=== PATIENT | female | born 1970 | race Hispanic/Latino ===

== ENCOUNTER 2020-07-23 12:54 | Emergency (ER) | payer SELFPAY ==
--- OUTSIDE RECORDS SUMMARY | 2020-07-23 12:58 | XMS REPORT | Continuity of Care Document ---
:1970 Author Organization [facility] t Address [address] [place] [address] Care Team Providers Name Role Phone Asked, Pcp Primary Care Physician Unavailable BROOKE AVILA Attending Clinician Unavailable CHANTALE Attending Clinician Unavailable JONELLE PERALTA Admitting Clinician Unavailable CHANTALE Admitting Clinician Unavailable Problems Condition Condition Condition Status Onset Resolution Last Treating Co mments Source Name Details Category Date Date Treatment Clinician Date Right Right Disease Active [facility] quadrant [facility] Medica l abdominal abdominal 00 [facility] pain pain Severe Severe Disease Active [facility] protein-ca protein-ca 1-05 Aleta maries - crissyavila woodward 00:00: Medical malnutriti malnutriti 00 Ce nter on on Recurrent Recurrent Disease Active 2016-[address] [facility] pancreatit pancreatit 2-24 Aleta kes - is is 00:00: [facility] Allergies, Adverse Reactions, Alerts This patient has no known allergies or adverse reactions. Social History Social Habit Start Date Stop Date Quantity Comments Source Tobacco use and 2017-07-12 2017-07-[address] [facility] - exposure 00:[facility]00 [facility]:00 [facility] Cigarettes smoked 2017-07-12 2017-07-[address] [facility] - current (pack per 00:00:00 00:00:00 [facility] day) - Reported Cigarette 2017-07-12 2017-07-[address] [facility] - pack-years 00:00:00 00:00:00 [facility] History of tobacco 2017-02-12 User of smokeless [facility] - use 00[facility]00:00 [facility] Alcohol intake 2016-08-22 2016-08-22 Current [place] 00:00:00 00:00:00 non-drinker of [facility] alcohol (finding) Sex Ass[birth year] [place] 00:00:00 00:00:00 [facility] Smoking Status Start Date Stop Date Source Former smoker 2017-07-12 00:00:00 2017-07-12 00:00:[address] [facility] Current every day 2016-08-22 [facility] Medications This patient has no known medications. Procedures This patient has no known procedures. Plan of Care Planned Activity Planned Date Details Comments Source Future Scheduled 2020-10-03 INFLUENZA VACCINE [facility] 00:00:00 [code = INFLUENZA VACCINE] Future Scheduled 2019-07-23 SHINGLES VACCINES [place] 00:00:00 (#1) [code = SHINGLES VACCINES (#1)] Future Scheduled 2019-07-23 BREAST CANCER [facility]00 SCREENING [code = BREAST CANCER SCREENING] Future Scheduled 2019-07-23 COLONOSCOPY SCREENING [facility] 00:00:00 [code = COLONOSCOPY SCREENING] Future Scheduled 1990 [facility]00 malignant neoplasm of cervix (procedure) [code = 163683208] Future Scheduled 1981 COVID-19 VACCINE (1) [facility] 00:00:00 [code = COVID-19 VACCINE (1)] Results Test Description Test Time Test Comments Results Result Comments Source BASIC METABOLIC PANEL 2017-07-12 09:36:00 Test Item Value Reference Range Interpretation Comme nts SODIUM (BEAKER) (test code 139 meq/L 136-145 = 381) POTASSIUM (BEAKER) (test 3.5 meq/L 3.5-5.1 code = 379) CHLORIDE (BEAKER) (test 104 meq/L 98-107 code = 382) CO2 (BEAKER) (test code = 23 meq/L 22-29 355) BLOOD UREA NITROGEN 9 mg/dL 7-21 (BEAKER) (test code = 354) CREATININE (BEAKER) (test 0.70 mg/dL 0.57-1.25 code = 358) GLUCOSE RANDOM (BEAKER) 77 mg/dL 70-105 (test code = 652) CALCIUM (BEAKER) (test code 9.7 mg/dL 8.4-10.2 = 697) EGFR (BEAKER) (test code = mL/min/1.73 sq m INSUFFICIENT CLINICAL DATA 1092) TO CALCULATE ES TIMATED GFR. CBC W/PLT COUNT & AUTO [id number] 09:08:00 Test Item Value Reference Range Interpretation Comments WHITE BLOOD CELL COUNT (BEAKER) 5.9 K/ L 3.5-10.5 (test code = 775) RED BLOOD CELL COUNT (BEAKER) 5.14 M/ L 3.93-5.22 (test code = 761) HEMOGLOBIN (BEAKER) (test code = 14.3 GM/DL 11.2-15.7 410) HEMATOCRIT (BEAKER) (test code = 44.3 % 34.1-44.9 411) MEAN CORPUSCULAR VOLUME (BEAKER) 86.2 fL 79.4-94.8 (test code = 753) MEAN CORPUSCULAR HEMOGLOBIN 27.8 pg 25.6-32.2 (BEAKER) (test code = 751) MEAN CORPUSCULAR HEMOGLOBIN CONC 32.3 GM/DL 32.2-35.5 (BEAKER) (test code = 752) RED CELL DISTRIBUTION WIDTH 14.1 % 11.7-14.4 (BEAKER) (test code = 412) PLATELET COUNT (BEAKER) (test 160 K/CU MM 150-450 code = 756) MEAN PLATELET VOLUME (BEAKER) 10.9 fL 9.4-12.3 (test code = 754) NUCLEATED RED BLOOD CELLS 0 /100 WBC 0-0 (BEAKER) (test code = 413) NEUTROPHILS RELATIVE PERCENT 47 % (BEAKER) (test code = 429) LYMPHOCYTES RELATIVE PERCENT 41 % (BEAKER) (test code = 430) MONOCYTES RELATIVE PERCENT 9 % (BEAKER) (test code = 431) EOSINOPHILS RELATIVE PERCENT 3 % (BEAKER) (test code = 432) BASOPHILS RELATIVE PERCENT 1 % (BEAKER) (test code = 437) NEUTROPHILS ABSOLUTE COUNT 2.73 K/ L 1.56-6.13 (BEAKER) (test code = 670) LYMPHOCYTES ABSOLUTE COUNT 2.37 K/ L 1.18-3.74 (BEAKER) (test code = 414) MONOCYTES ABSOLUTE COUNT (BEAKER) 0.51 K/ L 0.24-0.36 H (test code = 415) EOSINOPHILS ABSOLUTE COUNT 0.20 K/ L 0.04-0.36 (BEAKER) (test code = 416) BASOPHILS ABSOLUTE COUNT (BEAKER) 0.03 K/ L 0.01-0.08 (test code = 417) IMMATURE GRANULOCYTES-RELATIVE 0 % 0-1 PERCENT (BEAKER) (test code = 2801) FL, [id number] 21:43:00Reason for exam:->abd painFINAL REPORT Examination: ERCP 2 fluoroscopic spot views were obtained during the procedure by the ordering service. Images are nondiagnostic as no radiologist was present at the time of imaging. Fluoroscopic time was 81.9 seconds. Please see the procedure report for details. Signed: Hayden Butts MDReport Verified Date/Time: 07/11/2017 21:43:43 Reading Location: [address] Reading Room C METABOLIC [id number] 04:51:00 Test Item Value Reference Range Interpretation Comments SODIUM (BEAKER) 139 meq/L 136-145 (test code = 381) POTASSIUM (BEAKER) 4.0 meq/L 3.5-5.1 (test code = 379) CHLORIDE (BEAKER) 109 meq/L 98-107 H (test code = 382) CO2 (BEAKER) (test 20 meq/L 22-29 L code = 355) BLOOD UREA NITROGEN 8 mg/dL 7-21 (BEAKER) (test code = 354) CREATININE (BEAKER) 0.69 mg/dL 0.57-1.25 (test code = 358) GLUCOSE RANDOM 84 mg/dL 70-105 (BEAKER) (test code = 652) CALCIUM (BEAKER) 9.5 mg/dL 8.4-10.2 (test code = 697) EGFR (BEAKER) (test mL/min/1.73 INSUFFIC IENT CLINICAL code = 1092) sq m DATA TO CALCULA TE ESTIMATED GFR. CBC W/PLT COUNT & AUTO [id number] 04:46:00 Test Item Value Reference Range Interpretation Comments WHITE BLOOD CELL COUNT (BEAKER) 5.9 K/ L 3.5-10.5 (test code = 775) RED BLOOD CELL COUNT (BEAKER) 4.98 M/ L 3.93-5.22 (test code = 761) HEMOGLOBIN (BEAKER) (test code = 14.0 GM/DL 11.2-15.7 410) HEMATOCRIT (BEAKER) (test code = 42.7 % 34.1-44.9 411) MEAN CORPUSCULAR VOLUME (BEAKER) 85.7 fL 79.4-94.8 (test code = 753) MEAN CORPUSCULAR HEMOGLOBIN 28.1 pg 25.6-32.2 (BEAKER) (test code = 751) MEAN CORPUSCULAR HEMOGLOBIN CONC 32.8 GM/DL 32.2-35.5 (BEAKER) (test code = 752) RED CELL DISTRIBUTION WIDTH 14.3 % 11.7-14.4 (BEAKER) (test code = 412) PLATELET COUNT (BEAKER) (test 176 K/CU MM 150-450 code = 756) MEAN PLATELET VOLUME (BEAKER) 10.9 fL 9.4-12.3 (test code = 754) NUCLEATED RED BLOOD CELLS 0 /100 WBC 0-0 (BEAKER) (test code = 413) NEUTROPHILS RELATIVE PERCENT 39 % (BEAKER) (test code = 429) LYMPHOCYTES RELATIVE PERCENT 48 % (BEAKER) (test code = 430) MONOCYTES RELATIVE PERCENT 8 % (BEAKER) (test code = 431) EOSINOPHILS RELATIVE PERCENT 4 % (BEAKER) (test code = 432) BASOPHILS RELATIVE PERCENT 1 % (BEAKER) (test code = 437) NEUTROPHILS ABSOLUTE COUNT 2.30 K/ L 1.56-6.13 (BEAKER) (test code = 670) LYMPHOCYTES ABSOLUTE COUNT 2.82 K/ L 1.18-3.74 (BEAKER) (test code = 414) MONOCYTES ABSOLUTE COUNT (BEAKER) 0.46 K/ L 0.24-0.36 H (test code = 415) EOSINOPHILS ABSOLUTE COUNT 0.26 K/ L 0.04-0.36 (BEAKER) (test code = 416) BASOPHILS ABSOLUTE COUNT (BEAKER) 0.03 K/ L 0.01-0.08 (test code = 417) IMMATURE GRANULOCYTES-RELATIVE 0 % 0-1 PERCENT (BEAKER) (test code = 2801) BASIC METABOLIC [id number] 05:02:00 Test Item Value Reference Range Interpretation Comments SODIUM (BEAKER) 138 meq/L 136-145 (test code = 381) POTASSIUM (BEAKER) 3.6 meq/L 3.5-5.1 (test code = 379) CHLORIDE (BEAKER) 108 meq/L 98-107 H (test code = 382) CO2 (BEAKER) (test 20 meq/L 22-29 L code = 355) BLOOD UREA NITROGEN 10 mg/dL 7-21 (BEAKER) (test code = 354) CREATININE (BEAKER) 0.67 mg/dL 0.57-1.25 (test code = 358) GLUCOSE RANDOM 95 mg/dL 70-105 (BEAKER) (test code = 652) CALCIUM (BEAKER) 9.4 mg/dL 8.4-10.2 (test code = 697) EGFR (BEAKER) (test mL/min/1.73 INSUFFIC IENT CLINICAL code = 1092) sq m DATA TO CALCULA TE ESTIMATED GFR. CBC W/PLT COUNT & AUTO [id number] 04:27:00 Test Item Value Reference Range Interpretation Comments WHITE BLOOD CELL COUNT (BEAKER) 7.3 K/ L 3.5-10.5 (test code = 775) RED BLOOD CELL COUNT (BEAKER) 4.96 M/ L 3.93-5.22 (test code = 761) HEMOGLOBIN (BEAKER) (test code = 13.9 GM/DL 11.2-15.7 410) HEMATOCRIT (BEAKER) (test code = 42.8 % 34.1-44.9 411) MEAN CORPUSCULAR VOLUME (BEAKER) 86.3 fL 79.4-94.8 (test code = 753) MEAN CORPUSCULAR HEMOGLOBIN 28.0 pg 25.6-32.2 (BEAKER) (test code = 751) MEAN CORPUSCULAR HEMOGLOBIN CONC 32.5 GM/DL 32.2-35.5 (BEAKER) (test code = 752) RED CELL DISTRIBUTION WIDTH 14.4 % 11.7-14.4 (BEAKER) (test code = 412) PLATELET COUNT (BEAKER) (test 184 K/CU MM 150-450 code = 756) MEAN PLATELET VOLUME (BEAKER) 11.2 fL 9.4-12.3 (test code = 754) NUCLEATED RED BLOOD CELLS 0 /100 WBC 0-0 (BEAKER) (test code = 413) NEUTROPHILS RELATIVE PERCENT 48 % (BEAKER) (test code = 429) LYMPHOCYTES RELATIVE PERCENT 39 % (BEAKER) (test code = 430) MONOCYTES RELATIVE PERCENT 9 % (BEAKER) (test code = 431) EOSINOPHILS RELATIVE PERCENT 3 % (BEAKER) (test code = 432) BASOPHILS RELATIVE PERCENT 0 % (BEAKER) (test code = 437) NEUTROPHILS ABSOLUTE COUNT 3.50 K/ L 1.56-6.13 (BEAKER) (test code = 670) LYMPHOCYTES ABSOLUTE COUNT 2.84 K/ L 1.18-3.74 (BEAKER) (test code = 414) MONOCYTES ABSOLUTE COUNT (BEAKER) 0.64 K/ L 0.24-0.36 H (test code = 415) EOSINOPHILS ABSOLUTE COUNT 0.25 K/ L 0.04-0.36 (BEAKER) (test code = 416) BASOPHILS ABSOLUTE COUNT (BEAKER) 0.03 K/ L 0.01-0.08 (test code = 417) IMMATURE GRANULOCYTES-RELATIVE 0 % 0-1 PERCENT (BEAKER) (test code = 2801) CT, [id number] 19:19:00Reason for exam:->Abdominal painWhat is the patient's sedation requirement?->No SedationIs thepatient ?->UnknownFINAL REPORT CT scan of the abdomen and pelvis. CLINICAL HISTORY: Abdominal pain and distention with pancreatic stent. COMPARISON STUDY: March 01, 2017. TECHNIQUE: Contiguous helical slices were acquired through the abdomen and pelvis post administration of intravenous contrast. No oral contrast was administered. This exam was performed according to our department dose optimization program which includes automated exposure control, adjustment of the mA and/or kV according to the patient's size and/or use of iterative reconstruction technique. FINDINGS: The lung bases are clear. The liver, spleen, kidneys and adrenal glands are unremarkable. The gallbladder and biliary tree are within normal limits. A stent is in the pancreatic duct. Within the pancreatic head is a 4.0 x 2.1 cm cyst which previously measured 6.9 x 5.4 cm. There are no dilated loops of bowel seen to suggest obstruction. The appendix is not well seen but no obvious signs of appendicitis are noted. There is no free fluid or free air. No suspicious adenopathy is seen. The aorta is normal in caliber. Atherosclerosis is identified. Bone windows demonstrate degenerative changes. Fusion of the sacroiliac joints is seen and a seronegative spondyloarthropathy cannot be excluded. IMPRESSION:1. Stent within the p ancreatic duct with a cyst in the pancreatic head, smaller than on previous.2. Appendix not well seen.3. Fusion of the sacroiliac joints. Clinical correlation to exclude a seronegative spondyloarthropathy is recommended Signed: Sj Palacioseport Verified Date/Time: 07/09/2017 19:19:04 Reading Location: [address] Body Reading Room PREGNANCY SCREEN, [id number] 19:18:00 Test Item Value Reference Range Interpretation Comments TEST URINE (BEAKER) (test Negative code = 583) BASIC METABOLIC [id number] 14:45:00 Test Item Value Reference Range Interpretation Comments SODIUM (BEAKER) 138 meq/L 136-145 (test code = 381) POTASSIUM (BEAKER) 4.2 meq/L 3.5-5.1 (test code = 379) CHLORIDE (BEAKER) 108 meq/L 98-107 H (test code = 382) CO2 (BEAKER) (test 20 meq/L 22-29 L code = 355) BLOOD UREA NITROGEN 9 mg/dL 7-21 (BEAKER) (test code = 354) CREATININE (BEAKER) 0.73 mg/dL 0.57-1.25 (test code = 358) GLUCOSE RANDOM 88 mg/dL 70-105 (BEAKER) (test code = 652) CALCIUM (BEAKER) 9.8 mg/dL 8.4-10.2 (test code = 697) EGFR (BEAKER) (test mL/min/1.73 INSUFFIC IENT CLINICAL code = 1092) sq m DATA TO CALCULA TE ESTIMATED GFR. URINALYSIS W/ REFLEX URINE [id number] 14:33:00 Test Item Value Reference Range Interpretation Comments COLOR (BEAKER) (test code = 470) Colorless CLARITY (BEAKER) (test code = 469) Clear SPECIFIC GRAVITY UA (BEAKER) (test 1.003 1.001-1.035 code = 468) PH UA (BEAKER) (test code = 467) 6.0 5.0-8.0 PROTEIN UA (BEAKER) (test code = Negative Negative 464) GLUCOSE UA (BEAKER) (test code = Negative Negative 365) KETONES UA (BEAKER) (test code = Negative Negative 371) BILIRUBIN UA (BEAKER) (test code = Negative Negative 462) BLOOD UA (BEAKER) (test code = 461) Negative Negative NITRITE UA (BEAKER) (test code = Negative Negative 465) LEUKOCYTE ESTERASE UA (BEAKER) Negative Negative (test code = 466) UROBILINOGEN UA (BEAKER) (test code 0.2 mg/dL 0.2-1.0 = 463) RBC UA (BEAKER) (test code = 519) 0 /HPF WBC UA (BEAKER) (test code = 520) 0 /HPF SOURCE(BEAKER) (test code = 2795) [id number] 14:29:00 Test Item Value Reference Range Interpretation Comments LIPASE (BEAKER) (test code = 749) 43 U/L 8-78 HEPATIC FUNCTION [id number] 14:29:00 Test Item Value Reference Range Interpretation Comments TOTAL PROTEIN (BEAKER) (test code = 8.1 gm/dL 6.0-8.3 770) ALBUMIN (BEAKER) (test code = 1145) 4.5 g/dL 3.5-5.0 BILIRUBIN TOTAL (BEAKER) (test code 0.2 mg/dL 0.2-1.2 = 377) BILIRUBIN DIRECT (BEAKER) (test 0.1 mg/dL 0.1-0.5 code = 706) ALKALINE PHOSPHATASE (BEAKER) (test 94 U/L 40-150 code = 346) AST (SGOT) (BEAKER) (test code = 18 U/L 5-34 353) ALT (SGPT) (BEAKER) (test code = 14 U/L 6-55 347) [id number] 14:23:00 Test Item Value Reference Range Interpretation Comments PARTIAL THROMBOPLASTIN TIME 27.7 seconds 22.5-36.0 (BEAKER) (test code = 760) CBC W/PLT COUNT & AUTO [id number] 14:22:00 Test Item Value Reference Range Interpretation Comments WHITE BLOOD CELL COUNT (BEAKER) 8.7 K/ L 3.5-10.5 (test code = 775) RED BLOOD CELL COUNT (BEAKER) 5.34 M/ L 3.93-5.22 H (test code = 761) HEMOGLOBIN (BEAKER) (test code = 14.8 GM/DL 11.2-15.7 410) HEMATOCRIT (BEAKER) (test code = 46.3 % 34.1-44.9 H 411) MEAN CORPUSCULAR VOLUME (BEAKER) 86.7 fL 79.4-94.8 (test code = 753) MEAN CORPUSCULAR HEMOGLOBIN 27.7 pg 25.6-32.2 (BEAKER) (test code = 751) MEAN CORPUSCULAR HEMOGLOBIN CONC 32.0 GM/DL 32.2-35.5 L (BEAKER) (test code = 752) RED CELL DISTRIBUTION WIDTH 14.4 % 11.7-14.4 (BEAKER) (test code = 412) PLATELET COUNT (BEAKER) (test 193 K/CU MM 150-450 code = 756) MEAN PLATELET VOLUME (BEAKER) 11.1 fL 9.4-12.3 (test code = 754) NUCLEATED RED BLOOD CELLS 0 /100 WBC 0-0 (BEAKER) (test code = 413) NEUTROPHILS RELATIVE PERCENT 61 % (BEAKER) (test code = 429) LYMPHOCYTES RELATIVE PERCENT 27 % (BEAKER) (test code = 430) MONOCYTES RELATIVE PERCENT 9 % (BEAKER) (test code = 431) EOSINOPHILS RELATIVE PERCENT 3 % (BEAKER) (test code = 432) BASOPHILS RELATIVE PERCENT 1 % (BEAKER) (test code = 437) NEUTROPHILS ABSOLUTE COUNT 5.29 K/ L 1.56-6.13 (BEAKER) (test code = 670) LYMPHOCYTES ABSOLUTE COUNT 2.32 K/ L 1.18-3.74 (BEAKER) (test code = 414) MONOCYTES ABSOLUTE COUNT (BEAKER) 0.78 K/ L 0.24-0.36 H (test code = 415) EOSINOPHILS ABSOLUTE COUNT 0.29 K/ L 0.04-0.36 (BEAKER) (test code = 416) BASOPHILS ABSOLUTE COUNT (BEAKER) 0.04 K/ L 0.01-0.08 (test code = 417) IMMATURE GRANULOCYTES-RELATIVE 0 % 0-1 PERCENT (BEAKER) (test code = 2801) BLOOD [id number] 17:00:00 Test Item Value Reference Range Interpretation Comments CULTURE (BEAKER) (test No growth in 5 days code = 1095) COMPREHENSIVE METABOLIC [id number] 07:48:00 Test Item Value Reference Range Interpretation Comments TOTAL PROTEIN 6.8 gm/dL 6.0-8.3 (BEAKER) (test code = 770) ALBUMIN (BEAKER) 3.0 g/dL 3.5-5.0 L (test code = 1145) ALKALINE PHOSPHATASE 367 U/L 40-150 H (BEAKER) (test code = 346) BILIRUBIN TOTAL 0.9 mg/dL 0.2-1.2 (BEAKER) (test code = 377) SODIUM (BEAKER) 139 meq/L 136-145 (test code = 381) POTASSIUM (BEAKER) 3.8 meq/L 3.5-5.1 (test code = 379) CHLORIDE (BEAKER) 107 meq/L 98-107 (test code = 382) CO2 (BEAKER) (test 23 meq/L 22-29 code = 355) BLOOD UREA NITROGEN 2 mg/dL 7-21 L (BEAKER) (test code = 354) CREATININE (BEAKER) 0.56 mg/dL 0.57-1.25 L (test code = 358) GLUCOSE RANDOM 92 mg/dL 70-105 (BEAKER) (test code = 652) CALCIUM (BEAKER) 9.1 mg/dL 8.4-10.2 (test code = 697) AST (SGOT) (BEAKER) 60 U/L 5-34 H (test code = 353) ALT (SGPT) (BEAKER) 67 U/L 6-55 H (test code = 347) EGFR (BEAKER) (test mL/min/1.73 INSUFFIC IENT code = 1092) sq m CLINICAL DATA T O CALCULATE ESTIM ATED GFR. [id number] 07:44:00 Test Item Value Reference Range Interpretation Comments MAGNESIUM (BEAKER) (test code = 1.7 mg/dL 1.6-2.6 627) HEPATIC FUNCTION [id number] 07:44:00 Test Item Value Reference Range Interpretation Comments TOTAL PROTEIN (BEAKER) (test code = 6.8 gm/dL 6.0-8.3 770) ALBUMIN (BEAKER) (test code = 1145) 3.0 g/dL 3.5-5.0 L BILIRUBIN TOTAL (BEAKER) (test code 0.9 mg/dL 0.2-1.2 = 377) BILIRUBIN DIRECT (BEAKER) (test 0.6 mg/dL 0.1-0.5 H code = 706) ALKALINE PHOSPHATASE (BEAKER) (test 367 U/L 40-150 H code = 346) AST (SGOT) (BEAKER) (test code = 60 U/L 5-34 H 353) ALT (SGPT) (BEAKER) (test code = 67 U/L 6-55 H 347) POCT-GLUCOSE [id number] 05:37:00 Test Item Value Reference Range Interpretation Comments POC-GLUCOSE METER 101 mg/dL 70-110 TESTED AT [facility] 6720 (BEAKER) (test code = KELBY Lou [facility] 1538) [address] CT, ABDOMEN - PELVIS, PANCREAS [id number] 03:30:00Reason for exam:- >recurrent pancreatitisFINAL REPORT CLINICAL HISTORY: Recurrent pancreatitis, complicated FINDINGS:Multiple axial images of the abdomen and pelvis were performed before and after the uncomplicated adm inistration of IV contrast. Oral contrast was not given. This exam was performed according to our departmental dose-optimization program, which includes automated exposure control, adjustment of the mA and/or kV according to patient size and/or use of the iterative reconstruction technique. Comparison: Outside CT dated 02/22/2017 Lower chest: Curvilinear atelectasis versus scarring in the lung bases. No pleural effusion or pneumothorax. Visualized cardiac contours normal. Liver: No significant findings. Gallbladder and biliary tree: Plastic common bile duct stent in place. Trace pneumobilia including gas in the gallbladder lumen likely related to stent placement. No biliary ductal dilatation. Spleen: No significant findings. Adrenal Glands: No significant findings. Kidneys and ureters: No significant findings. Stomach and Duodenum: The distal stomach and proximal duodenum are displaced by a prominent pancreatic fluid collection. Pancreas: Multiple circumscribed fluid collections related to thepancreas, probably pseudocysts. The largest is in the pancreatic head measures 7.7 x 5.9 cm. A pancreatic duct stent in place. No Ductal dilatation is present. There is peripancreatic fat stranding. Several prominent but subcentimeter peripancreatic and nasreen hepatis lymph nodes are probably reactive.Bowel: No significant findings. Appendix: Nonvisualized. No right lower quadrant inflammatory changes. Bladder: No significant findings. Major vascular structures: Atherosclerotic calcifications. The splenic and superior mesenteric arteries and veins are patent. Reproductive organs: No significant findings. Skeleton: No acute bony abnormality. IMPRESSION: Multiple circumscribed fluid collections related to the pancreas, likely pseudocysts. Peripancreatic fat stranding and trace fluid likely relates to pancreatitis. Please correlate with serology. Interval placement of common bile duct and pancreatic ductal stents. No ductal dilatation is identified. Several prominent peripancreatic and nsareen hepatic nodes are probably reactive. Attention on follow-up. Signed: Hayden Butts MDRadan Verified Date/Time: 03/01/2017 03:30:46 Reading Location: [address] Reading Room Electronicallysigned by: HAYDEN BUTTS M.D. on 03/01/2017 03:30 AMPOCT-GLUCOSE [id number] 00:34:00 Test Item Value Reference Range Interpretation Comments POC-GLUCOSE METER 85 mg/dL 70-110 TESTED AT [place] [address] ([facility]) (test code = KELBY Lou [facility] [address] 1538) POCT-GLUCOSE [id number] 17:59:00 Test Item Value Reference Range Interpretation Comments POC-GLUCOSE METER 85 mg/dL 70-110 TESTED AT [place] [address] ([facility]) (test code = [facility] [address] 1538) POCT-GLUCOSE [id number] 11:39:00 Test Item Value Reference Range Interpretation Comments POC-GLUCOSE METER 84 mg/dL 70-110 TESTED AT [place] [address] ([facility]) (test code = [facility] Dasha [facility] [address] 1538) HEPATIC FUNCTION [id number] 07:46:00 Test Item Value Reference Range Interpretation Comments TOTAL PROTEIN ([facility]) (test code = 6.7 gm/dL 6.0-8.3 770) ALBUMIN (BEAKER) (test code = 1145) 2.9 g/dL 3.5-5.0 L BILIRUBIN TOTAL (BEAKER) (test code 1.1 mg/dL 0.2-1.2 = 377) BILIRUBIN DIRECT (BEAKER) (test 0.7 mg/dL 0.1-0.5 H code = 706) ALKALINE PHOSPHATASE (BEAKER) (test 444 U/L 40-150 H code = 346) AST (SGOT) (BEAKER) (test code = 71 U/L 5-34 H 353) ALT (SGPT) (BEAKER) (test code = 76 U/L 6-55 H 347) BASIC METABOLIC [id number] 07:29:00 Test Item Value Reference Range Interpretation Comments SODIUM (BEAKER) 140 meq/L 136-145 (test code = 381) POTASSIUM (BEAKER) 3.3 meq/L 3.5-5.1 L (test code = 379) CHLORIDE (BEAKER) 109 meq/L 98-107 H (test code = 382) CO2 (BEAKER) (test 24 meq/L 22-29 code = 355) BLOOD UREA NITROGEN 2 mg/dL 7-21 L (BEAKER) (test code = 354) CREATININE (BEAKER) 0.53 mg/dL 0.57-1.25 L (test code = 358) GLUCOSE RANDOM 104 mg/dL 70-105 (BEAKER) (test code = 652) CALCIUM (BEAKER) 8.9 mg/dL 8.4-10.2 (test code = 697) EGFR (BEAKER) (test mL/min/1.73 INSUFFIC IENT CLINICAL code = 1092) sq m DATA TO CALCULA TE ESTIMATED GFR. CBC W/PLT COUNT & AUTO [id number] 07:12:00 Test Item Value Reference Range Interpretation Comments WHITE BLOOD CELL COUNT (BEAKER) 6.0 K/ L 3.5-10.5 (test code = 775) RED BLOOD CELL COUNT (BEAKER) 3.68 M/ L 3.93-5.22 L (test code = 761) HEMOGLOBIN (BEAKER) (test code = 10.1 GM/DL 11.2-15.7 L 410) HEMATOCRIT (BEAKER) (test code = 32.0 % 34.1-44.9 L 411) MEAN CORPUSCULAR VOLUME (BEAKER) 87.0 fL 79.4-94.8 (test code = 753) MEAN CORPUSCULAR HEMOGLOBIN 27.4 pg 25.6-32.2 (BEAKER) (test code = 751) MEAN CORPUSCULAR HEMOGLOBIN CONC 31.6 GM/DL 32.2-35.5 L (BEAKER) (test code = 752) RED CELL DISTRIBUTION WIDTH 14.5 % 11.7-14.4 H (BEAKER) (test code = 412) PLATELET COUNT (BEAKER) (test 304 K/CU MM 150-450 code = 756) MEAN PLATELET VOLUME (BEAKER) 10.8 fL 9.4-12.3 (test code = 754) NUCLEATED RED BLOOD CELLS 0 /100 WBC 0-0 (BEAKER) (test code = 413) NEUTROPHILS RELATIVE PERCENT 46 % (BEAKER) (test code = 429) LYMPHOCYTES RELATIVE PERCENT 42 % (BEAKER) (test code = 430) MONOCYTES RELATIVE PERCENT 10 % (BEAKER) (test code = 431) EOSINOPHILS RELATIVE PERCENT 2 % (BEAKER) (test code = 432) BASOPHILS RELATIVE PERCENT 0 % (BEAKER) (test code = 437) NEUTROPHILS ABSOLUTE COUNT 2.78 K/ L 1.56-6.13 (BEAKER) (test code = 670) LYMPHOCYTES ABSOLUTE COUNT 2.50 K/ L 1.18-3.74 (BEAKER) (test code = 414) MONOCYTES ABSOLUTE COUNT (BEAKER) 0.61 K/ L 0.24-0.36 H (test code = 415) EOSINOPHILS ABSOLUTE COUNT 0.10 K/ L 0.04-0.36 (BEAKER) (test code = 416) BASOPHILS ABSOLUTE COUNT (BEAKER) 0.02 K/ L 0.01-0.08 (test code = 417) IMMATURE GRANULOCYTES-RELATIVE 0 % 0-1 PERCENT (BEAKER) (test code = 2801) [id number] 06:42:00 Test Item Value Reference Range Interpretation Comments PROTIME (BEAKER) (test code = 16.7 seconds 11.7-14.7 H 759) INR (BEAKER) (test code = 370) 1.4 <=5.9 PARTIAL THROMBOPLASTIN TIME 31.5 seconds 22.5-36.0 ([facility]) (test code = 760) RECOMMENDED COUMADIN/WARFARIN INR THERAPY RANGESSTANDARD DOSE: 2.0 - 3.0 Includes: PROPHYLAXIS forvenous thrombosis, systemic embolization; TREATMENT for venous thrombosis and/or pulmonary embolus.HIGH RISK: Target INR is 2.5-3.5 for patients with mechanical heart valves.POCT-GLUCOSE [id number] 05:42:00 Test Item Value Reference Range Interpretation Comments POC-GLUCOSE METER 109 mg/dL 70-110 TESTED AT [place] [address] ([facility]) (test code = [facility] 1538) [id number] POCT-GLUCOSE [id number] 23:11:00 Test Item Value Reference Range Interpretation Comments POC-GLUCOSE METER 124 mg/dL 70-110 H TESTED AT [place] [address] ([facility]) (test code = [facility] 1538) [id number] POCT-GLUCOSE [id number] 17:35:00 Test Item Value Reference Range Interpretation Comments POC-GLUCOSE METER 147 mg/dL 70-110 H TESTED AT [place] [address] ([facility]) (test code = [facility] 1538) [address] HEPATIC FUNCTION [id number] 13:30:00 Test Item Value Reference Range Interpretation Comments TOTAL PROTEIN (BEAKER) (test code = 7.1 gm/dL 6.0-8.3 770) [facility]IN [facility] (test code = 1145) 3.0 g/dL 3.5-5.0 L BILIRUBIN TOTAL (AKER) (test code 1.6 mg/dL 0.2-1.2 H = 377) BILIRUBIN DIRECT ([facility]) (test 1.0 mg/dL 0.1-0.5 H code = 706) ALKALINE PHOSPHATASE (AKER) (test 602 U/L 40-150 H code = 346) AST (SGOT) (BEAKER) (test code = 140 U/L 5-34 H 353) ALT (SGPT) ([facility]) (test code = 101 U/L 6-55 H 347) POCT-GLUCOSE [id number] 11:51:00 Test Item Value Reference Range Interpretation Comments POC-GLUCOSE METER 124 mg/dL 70-110 H TESTED AT [place] [address] ([facility]) (test code = [facility] 1538) [address] UT, RESIDENTIAL CONCIERGE IN OR/30 MINUTE [id number] 10:30:00Reason for exam:->ercpFINAL REPORT Intraoperative fluoroscopy films performed by the referring physician. Number of images: 10Fluoroscopic time: 106 seconds The films were submitted to PACS postprocedure. The radiologist was not present at the time of examination. An interpretation was not requested. The submitted images are nondiagnostic without real-time visualization. Please refer to the performing physician's dictation for any and all details regarding the procedure including the submitted images. The radiologist did not perform fluoroscopy. Signed: Lashell Kingston MDReport Verified Date/Time: 02/27/2017 10:30:02 Reading Location: [facility] Radiology Reading Room POCT-GLUCOSE [id number] 06:54:00 Test Item Value Reference Range Interpretation Comments POC-GLUCOSE METER 113 mg/dL 70-110 H TESTED AT [facility] 6720 (BEAKER) (test code = KELBY Lou [facility] 1538) [address] [id number] 06:46:00 Test Item Value Reference Range Interpretation Comments MAGNESIUM (BEAKER) (test code = 1.9 mg/dL 1.6-2.6 627) BASIC METABOLIC [id number] 06:46:00 Test Item Value Reference Range Interpretation Comments SODIUM (BEAKER) 140 meq/L 136-145 (test code = 381) POTASSIUM (BEAKER) 3.5 meq/L 3.5-5.1 (test code = 379) CHLORIDE (BEAKER) 108 meq/L 98-107 H (test code = 382) CO2 (BEAKER) (test 22 meq/L 22-29 code = 355) BLOOD UREA NITROGEN 3 mg/dL 7-21 L (BEAKER) (test code = 354) CREATININE (BEAKER) 0.54 mg/dL 0.57-1.25 L (test code = 358) GLUCOSE RANDOM 105 mg/dL 70-105 (BEAKER) (test code = 652) CALCIUM (BEAKER) 9.2 mg/dL 8.4-10.2 (test code = 697) EGFR (BEAKER) (test mL/min/1.73 INSUFFIC IENT CLINICAL code = 1092) sq m DATA TO CALCULA TE ESTIMATED GFR. [id number] 06:36:00 Test Item Value Reference Range Interpretation Comments PROTIME (BEAKER) (test code = 16.1 seconds 11.7-14.7 H 759) INR (BEAKER) (test code = 370) 1.3 <=5.9 PARTIAL THROMBOPLASTIN TIME 33.1 seconds 22.5-36.0 (BEAKER) (test code = 760) RECOMMENDED COUMADIN/WARFARIN INR THERAPY RANGESSTANDARD DOSE: 2.0 - 3.0 Includes: PROPHYLAXIS forvenous thrombosis, systemic embolization; TREATMENT for venous thrombosis and/or pulmonary embolus.HIGH RISK: Target INR is 2.5-3.5 for patients with mechanical heart valves.CBC W/PLT COUNT & AUTO DIFFERENTIAL 2017-02-27 06:29:00 Test Item Value Reference Range Interpretation Comments WHITE BLOOD CELL COUNT (BEAKER) 4.6 K/ L 3.5-10.5 (test code = 775) RED BLOOD CELL COUNT (BEAKER) 3.83 M/ L 3.93-5.22 L (test code = 761) HEMOGLOBIN (BEAKER) (test code = 10.6 GM/DL 11.2-15.7 L 410) HEMATOCRIT (BEAKER) (test code = 33.3 % 34.1-44.9 L 411) MEAN CORPUSCULAR VOLUME (BEAKER) 86.9 fL 79.4-94.8 (test code = 753) MEAN CORPUSCULAR HEMOGLOBIN 27.7 pg 25.6-32.2 (BEAKER) (test code = 751) MEAN CORPUSCULAR HEMOGLOBIN CONC 31.8 GM/DL 32.2-35.5 L (BEAKER) (test code = 752) RED CELL DISTRIBUTION WIDTH 14.2 % 11.7-14.4 (BEAKER) (test code = 412) PLATELET COUNT (BEAKER) (test 336 K/CU MM 150-450 code = 756) MEAN PLATELET VOLUME (BEAKER) 11.1 fL 9.4-12.3 (test code = 754) NUCLEATED RED BLOOD CELLS 0 /100 WBC 0-0 (BEAKER) (test code = 413) NEUTROPHILS RELATIVE PERCENT 45 % (BEAKER) (test code = 429) LYMPHOCYTES RELATIVE PERCENT 34 % (BEAKER) (test code = 430) MONOCYTES RELATIVE PERCENT 12 % (BEAKER) (test code = 431) EOSINOPHILS RELATIVE PERCENT 7 % (BEAKER) (test code = 432) BASOPHILS RELATIVE PERCENT 1 % (BEAKER) (test code = 437) NEUTROPHILS ABSOLUTE COUNT 2.09 K/ L 1.56-6.13 (BEAKER) (test code = 670) LYMPHOCYTES ABSOLUTE COUNT 1.57 K/ L 1.18-3.74 (BEAKER) (test code = 414) MONOCYTES ABSOLUTE COUNT (BEAKER) 0.57 K/ L 0.24-0.36 H (test code = 415) EOSINOPHILS ABSOLUTE COUNT 0.34 K/ L 0.04-0.36 (BEAKER) (test code = 416) BASOPHILS ABSOLUTE COUNT (BEAKER) 0.03 K/ L 0.01-0.08 (test code = 417) IMMATURE GRANULOCYTES-RELATIVE 1 % 0-1 PERCENT (BEAKER) (test code = 2801) POCT-GLUCOSE [id number] 01:03:00 Test Item Value Reference Range Interpretation Comments POC-GLUCOSE METER 114 mg/dL 70-110 H TESTED AT [place] [address] [facility] (test code = [facility] 1538) [id number] POCT-GLUCOSE [id number] 21:52:00 Test Item Value Reference Range Interpretation Comments POC-GLUCOSE METER 83 mg/dL 70-110 TESTED AT [place] [address] [facility] (test code = [facility] [address] 1538) POCT-GLUCOSE [id number] 18:04:00 Test Item Value Reference Range Interpretation Comments POC-GLUCOSE METER 123 mg/dL 70-110 H TESTED AT [place] [id number] (BEAKER) (test code = [facility] 1538) [address] POCT-GLUCOSE [id number] 11:34:00 Test Item Value Reference Range Interpretation Comments POC-GLUCOSE METER 108 mg/dL 70-110 TESTED AT [place] [id number] (BEAKER) (test code = [facility] 1538) [address] [id number] 09:45:00 Test Item Value Reference Range Interpretation Comments MAGNESIUM (BEAKER) (test code = 1.7 mg/dL 1.6-2.6 627) [id number] 08:55:00 Test Item Value Reference Range Interpretation Comments LIPASE (BEAKER) (test code = 749) 605 U/L 8-78 H Specimen slightly ictericU/S, ABDOMINAL, [id number] 06:47:00Reason for exam:->abdominal painFINAL REPORT U/S, ABDOMINAL, COMPLETE INDICATION: "abdominal pain" COMPARISON: None. TECHNIQUE: Real-time transabdominal roberts scale and color Doppler ultrasound of the abdomen. FINDINGS:8.7 x 6.9 x 0.7 cm fluid collection near the head of the pancreas. There is some debris within this fluid collection in the wall is somewhat thick. Additionally, there is a smaller 2.5 x 1.3 x2.3 cm hypoechoic structure in the parenchyma of the pancreatic head. This is probably also a fluid collection despite the ability to fully clear the internal echoes.Moderate intrahepatic bile duct dilation.CBD is enlarged at 8 mm.Biliary sludge. Borderline gallbladder wall thickening. Mild pericholecystic fluid.Sonographic Spencer's sign is positive.Visualized portions of the kidneys are unremarkablewithout obvious hydronephrosis.Spleen is not enlarged.The visualized portions of the IVC and aorta are unremarkable. IMPRESSION: Large, thick-walled cystic structure with some internal debris centered around the pancreatic head. The ultrasound appearance is nonspecific, however statistically, this probably reflects a pseudocyst.Intra and extrahepatic bile duct dilation concerning for choledocholithiasis versus compression of the distal CBD by the presumed pseudocyst.Evaluation for acute cholecystitis is complicated by the presence of a pseudocyst and therefore, many of the ultrasound finding such as wall thickening, pericholecystic fluid, and the Spencer's sign are unreliable.CT recommended for further evaluation. Signed: Chucho Dempsey MDReport Verified Date/Time: 02/26/2017 06:47:30 Reading Location: [address] Consult Reading Room BASIC METABOLIC [id number] 06:18:00 Test Item Value Reference Range Interpretation Comments SODIUM (BEAKER) 138 meq/L 136-145 (test code = 381) POTASSIUM (BEAKER) 3.2 meq/L 3.5-5.1 L (test code = 379) CHLORIDE (BEAKER) 105 meq/L 98-107 (test code = 382) CO2 (BEAKER) (test 23 meq/L 22-29 code = 355) BLOOD UREA NITROGEN 2 mg/dL 7-21 L (BEAKER) (test code = 354) CREATININE (BEAKER) 0.51 mg/dL 0.57-1.25 L (test code = 358) GLUCOSE RANDOM 95 mg/dL 70-105 (BEAKER) (test code = 652) CALCIUM (BEAKER) 8.8 mg/dL 8.4-10.2 (test code = 697) EGFR (BEAKER) (test mL/min/1.73 INSUFFIC IENT CLINICAL code = 1092) sq m DATA TO CALCULA TE ESTIMATED GFR. Specimen slightly ictericRAD, CHEST, 1 VIEW, NON [id number] 06:00:00Reason for exam:->PICC placement Should this be performed at the bedside?->Yes FINAL REPORT RAD, CHEST, 1 VIEW, NON DEPT INDICATION: PICC placement COMPARISON: None TECHNIQUE: Portable frontal view of the chest. IMPRESSION: Left-sided PICC line terminates at the atriocaval junction.Cardiomediastinal silhouette stable.Linear opacity in the periphery of thelower right hemithorax which could reflect atelectasis or scarring. The lungs are otherwise clear.Noacute osseous abnormality. Signed: Chucho Dempsey MDReport Verified Date/Time: 02/26/2017 06:00:21 Reading Location: [address] Ortho Consult Reading Room URINALYSIS W/ [id number] 05:24:00 Test Item Value Reference Range Interpretation Comments COLOR (BEAKER) (test code = Dark Yellow 470) CLARITY (BEAKER) (test code = Clear 469) SPECIFIC GRAVITY UA (BEAKER) 1.010 1.001-1.035 (test code = 468) PH UA (BEAKER) (test code = 6.5 5.0-8.0 467) PROTEIN UA (BEAKER) (test code Negative Negative = 464) GLUCOSE UA (BEAKER) (test code Negative Negative = 365) KETONES UA (BEAKER) (test code 10 mg/dL Negative A = 371) BILIRUBIN UA (BEAKER) (test Positive Negative A code = 462) BLOOD UA (BEAKER) (test code = Negative Negative 461) NITRITE UA (BEAKER) (test code Negative Negative = 465) LEUKOCYTE ESTERASE UA (BEAKER) Negative Negative (test code = 466) UROBILINOGEN UA (BEAKER) (test 2.0 mg/dL 0.2-1.0 H code = 463) RBC UA (BEAKER) (test code = < /HPF 519) WBC UA (BEAKER) (test code = 2 /HPF 520) MUCUS (BEAKER) (test code = Occasional 1574) SQUAMOUS EPITHELIAL (BEAKER) 1 /HPF (test code = 516) AMORPHOUS CRYSTALS (BEAKER) Occasional (test code = 1584) SOURCE(BEAKER) (test code = Urine, Voided 2719) SCREEN, [id number] 05:24:00 Test Item Value Reference Range Interpretation Comments TEST URINE (BEAKER) (test Negative code = 583) [id number] 05:17:00 Test Item Value Reference Range Interpretation Comments PROTIME (BEAKER) (test code = 15.0 seconds 11.7-14.7 H 759) INR (BEAKER) (test code = 370) 1.2 <=5.9 PARTIAL THROMBOPLASTIN TIME 32.6 seconds 22.5-36.0 (BEAKER) (test code = 760) RECOMMENDED COUMADIN/WARFARIN INR THERAPY RANGESSTANDARD DOSE: 2.0 - 3.0 Includes: PROPHYLAXIS forvenous thrombosis, systemic embolization; TREATMENT for venous thrombosis and/or pulmonary embolus.HIGH RISK: Target INR is 2.5-3.5 for patients with mechanical heart valves.CBC W/PLT COUNT & AUTO DIFFERENTIAL 2017-02-26 05:14:00 Test Item Value Reference Range Interpretation Comments WHITE BLOOD CELL COUNT (BEAKER) 5.7 K/ L 3.5-10.5 (test code = 775) RED BLOOD CELL COUNT (BEAKER) 3.65 M/ L 3.93-5.22 L (test code = 761) HEMOGLOBIN (BEAKER) (test code = 10.1 GM/DL 11.2-15.7 L 410) HEMATOCRIT (BEAKER) (test code = 31.5 % 34.1-44.9 L 411) MEAN CORPUSCULAR VOLUME (BEAKER) 86.3 fL 79.4-94.8 (test code = 753) MEAN CORPUSCULAR HEMOGLOBIN 27.7 pg 25.6-32.2 (BEAKER) (test code = 751) MEAN CORPUSCULAR HEMOGLOBIN CONC 32.1 GM/DL 32.2-35.5 L (BEAKER) (test code = 752) RED CELL DISTRIBUTION WIDTH 13.8 % 11.7-14.4 (BEAKER) (test code = 412) PLATELET COUNT (BEAKER) (test 323 K/CU MM 150-450 code = 756) MEAN PLATELET VOLUME (BEAKER) 10.9 fL 9.4-12.3 (test code = 754) NUCLEATED RED BLOOD CELLS 0 /100 WBC 0-0 (BEAKER) (test code = 413) NEUTROPHILS RELATIVE PERCENT 59 % (BEAKER) (test code = 429) LYMPHOCYTES RELATIVE PERCENT 23 % (BEAKER) (test code = 430) MONOCYTES RELATIVE PERCENT 11 % (BEAKER) (test code = 431) EOSINOPHILS RELATIVE PERCENT 6 % (BEAKER) (test code = 432) BASOPHILS RELATIVE PERCENT 1 % (BEAKER) (test code = 437) NEUTROPHILS ABSOLUTE COUNT 3.36 K/ L 1.56-6.13 (BEAKER) (test code = 670) LYMPHOCYTES ABSOLUTE COUNT 1.32 K/ L 1.18-3.74 (BEAKER) (test code = 414) MONOCYTES ABSOLUTE COUNT (BEAKER) 0.61 K/ L 0.24-0.36 H (test code = 415) EOSINOPHILS ABSOLUTE COUNT 0.31 K/ L 0.04-0.36 (BEAKER) (test code = 416) BASOPHILS ABSOLUTE COUNT (BEAKER) 0.03 K/ L 0.01-0.08 (test code = 417) IMMATURE GRANULOCYTES-RELATIVE 1 % 0-1 PERCENT (BEAKER) (test code = 2801) BASIC METABOLIC [id number] 01:21:00 Test Item Value Reference Range Interpretation Comments SODIUM (BEAKER) 137 meq/L 136-145 (test code = 381) POTASSIUM (BEAKER) 3.2 meq/L 3.5-5.1 L (test code = 379) CHLORIDE (BEAKER) 104 meq/L 98-107 (test code = 382) CO2 (BEAKER) (test 23 meq/L 22-29 code = 355) BLOOD UREA NITROGEN 3 mg/dL 7-21 L (BEAKER) (test code = 354) CREATININE (BEAKER) 0.50 mg/dL 0.57-1.25 L (test code = 358) GLUCOSE RANDOM 95 mg/dL 70-105 (BEAKER) (test code = 652) CALCIUM (BEAKER) 9.0 mg/dL 8.4-10.2 (test code = 697) EGFR (BEAKER) (test mL/min/1.73 INSUFFIC IENT CLINICAL code = 1092) sq m DATA TO CALCULA TE ESTIMATED GFR. Specimen slightly ictericHEPATIC FUNCTION [id number] 01:11:00 Test Item Value Reference Range Interpretation Comments TOTAL PROTEIN (BEAKER) (test code = 7.2 gm/dL 6.0-8.3 770) ALBUMIN (BEAKER) (test code = 1145) 3.0 g/dL 3.5-5.0 L BILIRUBIN TOTAL (BEAKER) (test code 3.5 mg/dL 0.2-1.2 H = 377) BILIRUBIN DIRECT (BEAKER) (test 2.6 mg/dL 0.1-0.5 H code = 706) ALKALINE PHOSPHATASE (BEAKER) (test 520 U/L 40-150 H code = 346) AST (SGOT) (BEAKER) (test code = 161 U/L 5-34 H 353) ALT (SGPT) (BEAKER) (test code = 82 U/L 6-55 H 347) Specimen slightly ictericCBC W/PLT COUNT & AUTO [id number] 00:24:00 Test Item Value Reference Range Interpretation Comments WHITE BLOOD CELL COUNT (BEAKER) 6.2 K/ L 3.5-10.5 (test code = 775) RED BLOOD CELL COUNT (BEAKER) 3.69 M/ L 3.93-5.22 L (test code = 761) HEMOGLOBIN (BEAKER) (test code = 10.1 GM/DL 11.2-15.7 L 410) HEMATOCRIT (BEAKER) (test code = 31.8 % 34.1-44.9 L 411) MEAN CORPUSCULAR VOLUME (BEAKER) 86.2 fL 79.4-94.8 (test code = 753) MEAN CORPUSCULAR HEMOGLOBIN 27.4 pg 25.6-32.2 (BEAKER) (test code = 751) MEAN CORPUSCULAR HEMOGLOBIN CONC 31.8 GM/DL 32.2-35.5 L (BEAKER) (test code = 752) RED CELL DISTRIBUTION WIDTH 13.8 % 11.7-14.4 (BEAKER) (test code = 412) PLATELET COUNT (BEAKER) (test 345 K/CU MM 150-450 code = 756) MEAN PLATELET VOLUME (BEAKER) 10.5 fL 9.4-12.3 (test code = 754) NUCLEATED RED BLOOD CELLS 0 /100 WBC 0-0 (BEAKER) (test code = 413) NEUTROPHILS RELATIVE PERCENT 57 % (BEAKER) (test code = 429) LYMPHOCYTES RELATIVE PERCENT 27 % (BEAKER) (test code = 430) MONOCYTES RELATIVE PERCENT 10 % (BEAKER) (test code = 431) EOSINOPHILS RELATIVE PERCENT 5 % (BEAKER) (test code = 432) BASOPHILS RELATIVE PERCENT 0 % (BEAKER) (test code = 437) NEUTROPHILS ABSOLUTE COUNT 3.53 K/ L 1.56-6.13 (BEAKER) (test code = 670) LYMPHOCYTES ABSOLUTE COUNT 1.70 K/ L 1.18-3.74 (BEAKER) (test code = 414) MONOCYTES ABSOLUTE COUNT (BEAKER) 0.61 K/ L 0.24-0.36 H (test code = 415) EOSINOPHILS ABSOLUTE COUNT 0.31 K/ L 0.04-0.36 (BEAKER) (test code = 416) BASOPHILS ABSOLUTE COUNT (BEAKER) 0.02 K/ L 0.01-0.08 (test code = 417) IMMATURE GRANULOCYTES-RELATIVE 1 % 0-1 PERCENT (BEAKER) (test code = 2771)
[2020-07-23 15:01] LABS: Urine Blood 2+ (Negative); Urine Glucose Negative (Negative); Urine Protein Negative (Negative)
--- NOTE | 2020-07-23 15:35 | RAD REPORT ---
EXAM DESCRIPTION: CT - Stone Protocol - 07/23/2020 3:10 pm CLINICAL HISTORY: FLANK PAIN COMPARISON: Abdomen Pelvis W Contrast dated 02/22/2017; Abdomen Pelvis W Contrast dated TECHNIQUE: Axial 5 mm thick images were obtained without oral or IV contrast. The [id number] span s the entirety of the system including uppermost abdomen and lung bases. All CT scans are performed using dose optimization technique as appropriate and may include automated exposure control or mA/KV adjustment according to patient size. FINDINGS: Minimal dilatation of the left collecting system is present in the left kidney appears sli ghtly edematous relative to the right. There is a mild edema appearance to the livingston of the left david ecting system. No obstructing or nonobstructing calculi seen. Calcification near the pelvic inlet and near the UVJ are both believed to be vascular and not within the ureter. No bladder calculi seen. No right-sided hydronephrosis or right-sided calculus present. No suspicious renal masses. Isodense mas ses and pyelonephritis are not excluded on a stone protocol CT scan. No significant adrenal finding. No gross abnormality of the contracted urinary bladder. Uterus and ovaries show no suspicious finding s. No liver, spleen, gallbladder or biliary tree abnormality seen. No acute pancreatic finding. The nume elvi large pancreatic pseudocyst seen in 2017 have resolved. No suspicious bowel findings. Appendicitis is not suspected. No hernia, mass or bulky lymphadenopathy noted. No free air, free fluid or inflammatory stranding. No significant bony abnormality. Prominent disc and bony degenerative changes are present. No acute or pathologic bone process identifiable. Findings are most pronounced at L5-S1. IMPRESSION: Mild left-sided hydronephrosis without obstructing calculi seen. Livingston of the ureter jessenia ear edematous and the left kidney may be slightly edematous relative to the right. Pyelonephritis and/ or ureteritis cannot be excluded on a noncontrast study. Blood or inflammatory de bris in the collecting system can cause this degree of dilatation.
--- NOTE | 2020-07-23 16:01 | ER ---
Nurse's Notes [facility] Name: Shell Howard Age: 50 yrs Sex: Female : 1970 Arrival Date: 07/23/2020 Time: 12:58 Bed 7 Private MD: Diagnosis: Urinary tract infection, site not specified Presentation: 07/23 13:33 Chief complaint: Patient states: pressure in vaginal area that started on Sunday, on em Sunday developed left flank pain with nausea/vomiting, blood tinged urine, fatigue and burning with urination, denies fever. Coronavirus screen: Client denies travel out of the [place] in the last 14 days. Ebola Screen: Patient negative for fever greater than or equal to 101.5 degrees Fahrenheit, and additional compatible Ebola Virus Disease symptoms Patient denies exposure to infectious person. Patient denies travel to an Ebola-affected area in the 21 days before illness onset. No symptoms or risks identified at this time. Initial Sepsis Screen: Does the patient meet any 2 criteria? HR > 90 bpm. No. Patient's initial sepsis screen is negative. Does the patient have a suspected source of infection? No. Patient's initial sepsis screen is negative. Risk Assessment: Do you want to hurt yourself or someone else? Patient reports no desire to harm self or others. Onset of symptoms was July 23, 2020. 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 - Social history:: Smoking status: Patient reports the use of cigarette tobacco products, smokes one pack cigarettes per day. Screenin:06 Abuse screen: Denies threats or abuse. Denies injuries from another. Nutritional ld1 screening: No deficits noted. Tuberculosis screening: No symptoms or risk factors identified. Fall Risk None identified. Assessment: 15:06 General: Appears in no apparent distress. comfortable, Behavior is calm, cooperative, ld1 appropriate for age. Pain: Complains of pain in left low back and left lower quadrant Pain radiates to groin. Neuro: Neuro: Level of Consciousness is awake, alert, obeys commands, Oriented to person, place, time, situation, Appropriate for age. Cardiovascular: Capillary refill < 3 seconds Patient's skin is warm and dry. Respiratory: Airway is patent Respiratory effort is even, unlabored, Respiratory pattern is regular, symmetrical. GI: Abdomen is flat, non-distended. : Reports Pt reports hematuria X 3 days, also states "there is a lot of pressure in my bladder.". EENT: No signs and/or symptoms were reported regarding the EENT system. Derm: No signs and/or symptoms reported regarding the dermatologic system. Musculoskeletal: No signs and/or symptoms reported regarding the musculoskeletal system. 15:40 Reassessment: Patient appears in no apparent distress at this time. No changes from ld1 previously documented assessment. Patient and/or family updated on plan of care and expected duration. Pain level reassessed. Patient is alert, oriented x 3, equal unlabored respirations, skin warm/dry/pink. Laying in bed talking on phone. Waiting on results. Vital Signs: 13:33 BP 141 / 88; Pulse 92; Resp 18; Temp 99.1; Pulse Ox 98% on R/A; Weight 71.21 kg; Height em 5 ft. 5 in. (165.10 cm) (R); Pain 7/10; 15:40 BP 128 / 90; Pulse 86; Resp 18; Pulse Ox 100% on R/A; ld1 13:33 Body Mass Index 26.13 (71.21 kg, 165.10 cm) em ED Course: 12:58 Patient arrived in ED. mr 13:37 Triage completed. em 13:37 Arm band placed on. em 13:42 Malissa Toledo F[facility]-C [facility] kb 13:42 Dangelo Galarza MD is Attending Physician. kb 15:03 Ana Paula Galeana, RENZO is Primary Nurse. ld1 15:06 Patient has correct armband on for positive identification. Bed in low position. Call ld1 light in reach. Side rails up X 1. Pulse ox on. NIBP on. 15:06 No provider procedures requiring assistance completed. ld1 15:09 CT Stone Protocol In Process Unspecified. EDMS 16:12 Patient did not have IV access during this emergency room visit. ld1 18:11 Urine Microscopic Only Sent. ld1 Administered Medications: 15:30 Drug: Rocephin (cefTRIAXone) 1 grams Route: IM; Site: right gluteus; ld1 16:11 Follow up: Response: No adverse reaction ld1 15:30 Drug: TORadol (ketorolac) 30 mg Route: IM; Site: right deltoid; ld1 16:11 Follow up: Response: No adverse reaction ld1 15:30 Drug: Zofran (Ondansetron) 4 mg Route: PO; ld1 16:11 Follow up: Response: No adverse reaction ld1 Outcome: 16:00 Discharge ordered by . scott 16:12 Discharged to home ambulatory. ld1 16:12 Condition: stable 16:12 Discharge instructions given to patient, Instructed on discharge instructions, follow up and referral plans. medication usage, Demonstrated understanding of instructions, follow-up care, medications. 16:12 Patient left the ED. ld1 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 [employer] EDMalissa Velasquez, GIN BARGER-Christy Miller Edgar, RN RN Ana Paula Mora, RENZO RN ld1
--- NOTE | 2020-07-23 16:01 | EDPHYS ---
Physician Documentation [facility] Name: Shell Howard Age: 50 yrs Sex: Female : 1970 Arrival Date: 07/23/2020 Time: 12:58 Bed 7 Private MD: ED Physician Dangelo Galarza HPI: 07/24 00:11 This 50 yrs old Female presents to ER via Ambulatory with complaints of Flank kb Pain, Urinary Problem. 00:11 Pt reports she has had dysuria, frequency, hematuria (resolved after using cranberry), kb and low back pain. . 00:12 The patient presents with urinary symptoms, dysuria, frequency, hematuria. Onset: The kb symptoms/episode began/occurred 5 day(s) ago. Modifying factors: The symptoms are alleviated by nothing, the symptoms are aggravated by urinating. Associated signs and symptoms: Pertinent positives: dysuria, hematuria, urinary frequency. Severity of symptoms: At their worst the symptoms were moderate, in the emergency department the symptoms are unchanged. The patient has not experienced similar symptoms in the past. The patient has not recently seen a physician. 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 - Social history:: Smoking status: Patient reports the use of cigarette tobacco products, smokes one pack cigarettes per day. ROS: 07/24 00:10 Respiratory: Negative for shortness of breath, cough, wheezing, and pleuritic chest kb pain. Constitutional: Positive for fatigue. : Positive for urinary symptoms, flank pain, urinary frequency, small amounts, hematuria, burning with urination. All other systems are negative. Exam: 00:10 Constitutional: This is a well developed, well nourished patient who is awake, alert, kb and in no acute distress. ENT: Moist Mucous membranes Cardiovascular: Regular rate and rhythm with a normal S1 and S2. No gallops, murmurs, or rubs. No pulse deficits. Respiratory: Respirations even and unlabored. No increased work of breathing, no retractions or nasal flaring. Abdomen/GI: Soft, non-tender. No distention Back: No spinal tenderness. No costovertebral tenderness. Full range of motion. Skin: Warm, dry with normal turgor. Normal color. MS/ Extremity: Pulses equal, no cyanosis. Neurovascular intact. Full, normal range of motion. Neuro: Awake and alert, GCS 15, oriented to person, place, time, and situation. Moves all extremities. Normal gait. Psych: Awake, alert, with orientation to person, place and time. Behavior, mood, and affect are within normal limits. Vital Signs: 07/23 13:33 BP 141 / 88; Pulse 92; Resp 18; Temp 99.1; Pulse Ox 98% on R/A; Weight 71.21 kg; Height em 5 ft. 5 in. (165.10 cm) (R); Pain 7/10; 15:40 BP 128 / 90; Pulse 86; Resp 18; Pulse Ox 100% on R/A; ld1 13:33 Body Mass Index 26.13 (71.21 kg, 165.10 cm) em MDM: 14:47 Patient medically screened. kb 15:59 Data reviewed: vital signs, nurses notes. Data interpreted: Pulse oximetry: on room air kb is 98 %. Interpretation: normal. Counseling: I had a detailed discussion with the patient and/or guardian regarding: the historical points, exam findings, and any diagnostic results supporting the discharge/admit diagnosis, lab results, radiology results, the need for outpatient follow up, a family practitioner, to return to the emergency department if symptoms worsen or persist or if there are any questions or concerns that arise at home. 07/23 13:42 Order name: Urine Microscopic Only kb 07/23 13:42 Order name: Urine Microscopic Only; Complete Time: 19:11 EDMS 07/23 14:56 Order name: CT Stone Protocol; Complete Time: 15:37 kb 07/23 15:01 Order name: Urine Dipstick-Ancillary; Complete Time: 15:08 EDMS 07/23 13:42 Order name: Urine Dipstick-Ancillary (obtain specimen); Complete Time: 14:56 kb Administered Medications: 15:30 Drug: Rocephin (cefTRIAXone) 1 grams Route: IM; Site: right gluteus; ld1 16:11 Follow up: Response: No adverse reaction ld1 15:30 Drug: TORadol (ketorolac) 30 mg Route: IM; Site: right deltoid; ld1 16:11 Follow up: Response: No adverse reaction ld1 15:30 Drug: Zofran (Ondansetron) 4 mg Route: PO; ld1 16:11 Follow up: Response: No adverse reaction ld1 Disposition: 18:16 Co-signature as Attending Physician, Dangelo Galarza MD I agree with the assessment and kdr plan of care. Disposition: 07/23/20 16:00 Discharged to Home. Impression: Urinary tract infection, site not specified. - Condition is Stable. - Discharge Instructions: Urinary Tract Infection, Adult, Qgdv-[id number]. - Prescriptions for Augmentin 875- 125 mg Oral Tablet - take 1 tablet by ORAL route every 12 hours for 10 days; 20 tablet. Pyridium 200 mg Oral Tablet - take 1 tablet by ORAL route every 8 hours for 3 days; 9 tablet. - Medication Reconciliation Form, Thank You Letter, Antibiotic Education, Prescription Opioid Use form. - Work release form (07/23/20 16:20). ds4 - Follow up: Emergency Department; When: As needed; Reason: Worsening of condition. Follow up: Private Physician; When: 2 - 3 days; Reason: Recheck today's complaints, Continuance of care, Re-evaluation by your physician. 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 [employer] Malissa Astudillo, CHABREL-C BIOMECHANICAL ENGINEER-Dangelo Steward MD MD [facility] Peterson Quevedo RN RN Ana Paula Galeana RN RN ld1 Chin Sánchez ds4 Corrections: (The following items were deleted from the chart) 16:12 16:00 07/23/2020 16:00 Discharged to Home. Impression: Urinary tract infection, site ld1 not specified. Condition is Stable. Forms are Medication Reconciliation Form, Thank You Letter, Antibiotic Education, Prescription Opioid Use. Follow up: Emergency Department; When: As needed; Reason: Worsening of condition. Follow up: Private Physician; When: 2 - 3 days; Reason: Recheck today's complaints, Continuance of care, Re-evaluation by your physician. kb 07/24 00:13 00:10 Respiratory: Negative for shortness of breath, cough, wheezing, and pleuritic kb chest pain, kb 00:13 00:10 Constitutional: Positive for body aches, kb kb
[2020-07-23 16:07] LABS: Urine Amorphous Sediment 2+ /HPF (NONE SEEN); Urine Bacteria 20-50 /HPF (<20)
[2020-07-23] MEDS ORDERED: CEFTRIAXONE 1000 MG/VIAL ONE (16:15)
[2020-07-23] MEDS ORDERED: KETOROLAC 30 MG/ML INJ ONE (16:15)
[2020-07-23] MEDS ORDERED: ONDANSETRON 4 MG (ODT) TAB ONE (16:15)
[2020-07-23] MEDS ORDERED: LIDOCAINE 1% MPF 2 ML AMPULE ONE (16:16)
[2020-07-23 16:24] VITALS: TEMP 99.1
[2020-07-23 16:29] VITALS: BP 128/90; O2SAT 100
== END 2020-07-23 16:12 | disposition home or self-care (01) ==
LOC: ER 12:54
DX: N39.0 Urinary tract infection, site not specified (principal); F17.210 Nicotine dependence, cigarettes, uncomplicated
CPT/HCPCS: 74176; 76377; 81003; 81015; 87077; 87086; 87088; 87186; 96372; 99284

== ENCOUNTER 2021-03-03 12:27 | Emergency (ER) | payer SELFPAY ==
--- OUTSIDE RECORDS SUMMARY | 2021-03-03 12:30 | XMS REPORT | Continuity of Care Document ---
:1970 Author Organization [facility] t Address [address] [place] [address] Care Team Providers Name Role Phone MARGARITA, BROOKE Attending Clinician Unavailable CHANTALE Attending Clinician Unavailable JONELLE PERALTA Admitting Clinician Unavailable CHANTALE Admitting Clinician Unavailable Problems This patient has no known problems. Allergies, Adverse Reactions, Alerts This patient has no known allergies or adverse reactions. Medications This patient has no known medications. Procedures This patient has no known procedures. Results Test Description Test Time Test Comments [...] TIMATED GFR. CBC W/PLT COUNT & AUTO [id number] 09:08:00 Test Item Value Reference Range Interpretation [...] PERCENT (BEAKER) (test code = 2801) FL, [id number] 21:43:00Reason for exam:->abd painFINAL REPORT Examination: ERCP 2 fluoroscopic spot views were obtained during the procedure by the ordering service. Images are nondiagnostic as no radiologist was present at the time of imaging. Fluoroscopic time was 81.9 seconds. Please see the procedure report for details. Signed: Reyna Buttseport Verified Date/Time: 07/11/2017 21:43:43 Reading Location: [address] Reading Room C METABOLIC [id number] 04:51:00 Test Item Value Reference Range Interpretation [...] ESTIMATED GFR. CBC W/PLT COUNT & AUTO [id number] 04:46:00 Test Item Value Reference Range Interpretation [...] (BEAKER) (test code = 2801) BASIC METABOLIC [id number] 05:02:00 Test Item Value Reference Range Interpretation [...] ESTIMATED GFR. CBC W/PLT COUNT & AUTO [id number] 04:27:00 Test Item Value Reference Range Interpretation [...] PERCENT (BEAKER) (test code = 2801) CT, [id number] 19:19:00Reason for exam:->Abdominal painWhat is the patient's [...] exclude a seronegative spondyloarthropathy is recommended Signed: Stanietzky, Sj MDReport Verified Date/Time: 07/09/2017 19:19:04 Reading Location: [facility] C013Y CT Body Reading Room PREGNANCY SCREEN, [id number] 19:18:00 Test Item Value Reference Range Interpretation Comments TEST URINE (BEAKER) (test Negative code = 583) BASIC METABOLIC [id number] 14:45:00 Test Item Value Reference Range Interpretation [...] TE ESTIMATED GFR. URINALYSIS W/ REFLEX URINE [id number] 14:33:00 Test Item Value Reference Range Interpretation [...] 0 /HPF SOURCE(BEAKER) (test code = 2795) [id number] 14:29:00 Test Item Value Reference Range Interpretation Comments LIPASE (BEAKER) (test code = 749) 43 U/L 8-78 HEPATIC FUNCTION [id number] 14:29:00 Test Item Value Reference Range Interpretation [...] (test code = 14 U/L 6-55 347) [id number] 14:23:00 Test Item Value Reference Range Interpretation Comments PARTIAL THROMBOPLASTIN TIME 27.7 seconds 22.5-36.0 (BEAKER) (test code = 760) CBC W/PLT COUNT & AUTO [id number] 14:22:00 Test Item Value Reference Range Interpretation [...] PERCENT (BEAKER) (test code = 2801) BLOOD [id number] 17:00:00 Test Item Value Reference Range Interpretation Comments CULTURE (BEAKER) (test No growth in 5 days code = 1095) COMPREHENSIVE METABOLIC [id number] 07:48:00 Test Item Value Reference Range Interpretation [...] DATA T O CALCULATE ESTIM ATED GFR. [id number] 07:44:00 Test Item Value Reference Range Interpretation Comments MAGNESIUM (BEAKER) (test code = 1.7 mg/dL 1.6-2.6 627) HEPATIC FUNCTION [id number] 07:44:00 Test Item Value Reference Range Interpretation [...] 60 U/L 5-34 H 353) ALT (SGPT) (KELLE) (test code = 67 U/L 6-55 H 347) POCT-GLUCOSE [id number] 05:37:00 Test Item Value Reference Range Interpretation Comments POC-GLUCOSE METER 101 mg/dL 70-110 TESTED AT [facility] 6720 (KELLE) (test code = [place] 1538) [address] CT, ABDOMEN - PELVIS, PANCREAS [id number] 03:30:00Reason for exam:- >recurrent pancreatitisFINAL REPORT CLINICAL [...] dilatation is identified. Several prominent peripancreatic and nasreen hepatic nodes are probably reactive. Attention on follow-up. Signed: Reyna Butts MDReport Verified Date/Time: 03/01/2017 03:30:46 Reading Location: [address] Reading Room Electronicallysigned by: REYNA BUTTS M.D. on 03/01/2017 03:30 AMPOCT-GLUCOSE [id number] 00:34:00 Test Item Value Reference Range Interpretation Comments POC-GLUCOSE METER 85 mg/dL 70-110 TESTED AT [place] [address] (BEAKER) (test code = [facility] [address]38) POCT-GLUCOSE [id number] 17:59:00 Test Item Value Reference Range Interpretation Comments POC-GLUCOSE METER 85 mg/dL 70-110 TESTED AT [place] [address] (BEAKER) (test code = [facility] [address] 1538) POCT-GLUCOSE [id number] 11:39:00 Test Item Value Reference Range Interpretation Comments POC-GLUCOSE METER 84 mg/dL 70-110 TESTED AT [place] [address] (BEAKER) (test code = [facility] [address]38) HEPATIC FUNCTION [id number] 07:46:00 Test Item Value Reference Range Interpretation Comments TOTAL PROTEIN (BEAKER) (test code = 6.7 gm/dL 6.0-8.3 770) [...] 76 U/L 6-55 H 347) BASIC METABOLIC [id number] 07:29:00 Test Item Value Reference Range Interpretation [...] ESTIMATED GFR. CBC W/PLT COUNT & AUTO [id number] 07:12:00 Test Item Value Reference Range Interpretation [...] 0-1 PERCENT (BEAKER) (test code = 2801) [id number] 06:42:00 Test Item Value Reference Range Interpretation Comments PROTIME (BEAKER) (test code = 16.7 seconds 11.7-14.7 H 759) INR (BEAKER) (test code = 370) 1.4 <=5.9 PARTIAL THROMBOPLASTIN TIME 31.5 seconds 22.5-36.0 (BEAKER) (test code = 760) RECOMMENDED COUMADIN/WARFARIN INR THERAPY RANGESSTANDARD DOSE: 2.0 - 3.0 Includes: PROPHYLAXIS forvenous thrombosis, systemic embolization; TREATMENT for venous thrombosis and/or pulmonary embolus.HIGH RISK: Target INR is 2.5-3.5 for patients with mechanical heart valves.POCT-GLUCOSE [id number] 05:42:00 Test Item Value Reference Range Interpretation Comments POC-GLUCOSE METER 109 mg/dL 70-110 TESTED AT [facility] 6720 (BANNER) (test code = [place] 1538) [address] POCT-GLUCOSE [id number] 23:11:00 Test Item Value Reference Range Interpretation Comments POC-GLUCOSE METER 124 mg/dL 70-110 H TESTED AT [place] [address] (BANNER) (test code = [place] 1538) [address] POCT-GLUCOSE [id number] 17:35:00 Test Item Value Reference Range Interpretation Comments POC-GLUCOSE METER 147 mg/dL 70-110 H TESTED AT [place] [address] ([facility]) (test code = [place] [facility] 1538) [address] HEPATIC FUNCTION [id number] 13:30:00 Test Item Value Reference Range Interpretation Comments TOTAL PROTEIN (BEAKER) (test code = 7.1 gm/dL 6.0-8.3 770) ALBUMIN (BEAKER) (test code = 1145) 3.0 g/dL 3.5-5.0 L BILIRUBIN TOTAL (BEAKER) (test code 1.6 mg/dL 0.2-1.2 H = 377) BILIRUBIN DIRECT (BEAKER) (test 1.0 mg/dL 0.1-0.5 H code = 706) ALKALINE PHOSPHATASE (BEAKER) (test 602 U/L 40-150 H code = 346) AST (SGOT) (BEAKER) (test code = 140 U/L 5-34 H 353) ALT (SGPT) (BEAKER) (test code = 101 U/L 6-55 H 347) POCT-GLUCOSE [id number] 11:51:00 Test Item Value Reference Range Interpretation Comments POC-GLUCOSE METER 124 mg/dL 70-110 H TESTED AT [place] [address] ([place]ANNER) (test code = [place] [facility] 1538) [address] RI, 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 [id number] 10:30:00Reason for exam:->ercpFINAL REPORT Intraoperative fluoroscopy films [...] MDReport Verified Date/Time: 02/27/2017 10:30:02 Reading Location: [facility] Radiology Reading Room POCT-GLUCOSE [id number] 06:54:00 Test Item Value Reference Range Interpretation Comments POC-GLUCOSE METER 113 mg/dL 70-110 H TESTED AT [facility] 6720 (BEAKER) (test code = [place] [address]) [id number] 06:46:00 Test Item Value Reference Range Interpretation Comments MAGNESIUM (BEAKER) (test code = 1.9 mg/dL 1.6-2.6 627) BASIC METABOLIC [id number] 06:46:00 Test Item Value Reference Range Interpretation [...] m DATA TO CALCULA TE ESTIMATED GFR. [id number] 06:36:00 Test Item Value Reference Range Interpretation [...] 417) IMMATURE GRANULOCYTES-RELATIVE 1 % 0-1 PERCENT (BANNER) (test code = 2801) POCT-GLUCOSE [id number] 01:03:00 Test Item Value Reference Range Interpretation Comments POC-GLUCOSE METER 114 mg/dL 70-110 H TESTED AT [facility] 67 ([place]) (test code = [place] [facility] 1538) [address] POCT-GLUCOSE [id number] 21:52:00 Test Item Value Reference Range Interpretation Comments POC-GLUCOSE METER 83 mg/dL 70-110 TESTED AT [place] [address] (BANNER) (test code = [facility] Dasha [facility] [address]) POCT-GLUCOSE [id number] 18:04:00 Test Item Value Reference Range Interpretation Comments POC-GLUCOSE METER 123 mg/dL 70-110 H TESTED AT [place] [address] (BANNER) (test code = [facility] Dasha [facility] 1538) [address] POCT-GLUCOSE [id number] 11:34:00 Test Item Value Reference Range Interpretation Comments POC-GLUCOSE METER 108 mg/dL 70-110 TESTED AT [place] [address] (BANNER) (test code = [facility] Dasha [facility] 1538) [address] [id number] 09:45:00 Test Item Value Reference Range Interpretation Comments MAGNESIUM (BEAKER) (test code = 1.7 mg/dL 1.6-2.6 627) [id number] 08:55:00 Test Item Value Reference Range Interpretation Comments LIPASE (BEAKER) (test code = 749) 605 U/L 8-78 H Specimen slightly ictericU/S, ABDOMINAL, [id number] 06:47:00Reason for exam:->abdominal painFINAL REPORT U/S, ABDOMINAL, [...] are unreliable.CT recommended for further evaluation. Signed: Eliz Dempsey MDReport Verified Date/Time: 02/26/2017 06:47:30 Reading Location: [facility] C0X [facility] Reading Room BASIC METABOLIC [id number] 06:18:00 Test Item Value Reference Range Interpretation [...] Specimen slightly ictericRAD, CHEST, 1 VIEW, NON [id number] 06:00:00Reason for exam:->PICC placement Should this be [...] lungs are otherwise clear.Noacute osseous abnormality. Signed: Eliz Dempsey MDReport Verified Date/Time: 02/26/2017 06:00:21 Reading Location: [facility] C013X Ortho Consult Reading Room URINALYSIS W/ [id number] 05:24:00 Test Item Value Reference Range Interpretation [...] 1584) SOURCE(BEAKER) (test code = Urine, Voided 1230) SCREEN, [id number] 05:24:00 Test Item Value Reference Range Interpretation Comments TEST URINE (BEAKER) (test Negative code = 583) [id number] 05:17:00 Test Item Value Reference Range Interpretation [...] (BEAKER) (test code = 2801) BASIC METABOLIC [id number] 01:21:00 Test Item Value Reference Range Interpretation [...] TE ESTIMATED GFR. Specimen slightly ictericHEPATIC FUNCTION [id number] 01:11:00 Test Item Value Reference Range Interpretation [...] Specimen slightly ictericCBC W/PLT COUNT & AUTO [id number] 00:24:00 Test Item Value Reference Range Interpretation [...] % 0-1 PERCENT (BEAKER) (test code = 3043)
--- NOTE | 2021-03-03 17:59 | ER ---
Nurse's Notes [facility] Name: Shell Howard Age: 50 yrs Sex: Female : 1970 Arrival Date: 03/03/2021 Time: 12:29 Bed Waiting Private MD: Diagnosis: Presentation: 03/03 13:37 Chief complaint: Patient states: fever. body aches, head aches, sore throat. sky Coronavirus screen: Vaccine status: Patient reports being unvaccinated. Ebola Screen: Patient denies travel to an Ebola-affected area in the 21 days before illness onset. Initial Sepsis Screen: Does the patient meet any 2 criteria? No. Patient's initial sepsis screen is negative. Does the patient have a suspected source of infection? No. Patient's initial sepsis screen is negative. Risk Assessment: Do you want to hurt yourself or someone else? Patient reports no desire to harm self or others. Onset of symptoms was February 28, 2021. 13:37 Method Of Arrival: Ambulatory 13:37 Acuity: COSME 4 sky Triage Assessment: 13:40 General: Appears in no apparent distress. Behavior is calm, cooperative. Pain: sky Complains of pain in neck. Historical: - Allergies: 13:40 No Known Allergies; sky - Home Meds: 13:40 None [Active]; sky - PMHx: 13:40 Inflammation of Joints \T\ Muscles in Chest \T\ Ribs; Pancreatitis; sky - Immunization history:: Adult Immunizations up to date. - Social history:: Smoking status: Patient reports the use of cigarette tobacco products, smokes one pack cigarettes per day. Vital Signs: 13:37 BP 116 / 86; Pulse 72; Resp 18; Temp 98.3; Pulse Ox 100% ; Weight 73.48 kg; Height 5 sky ft. 6 in. (167.64 cm); 13:37 Body Mass Index 26.15 (73.48 kg, 167.64 cm) ED Course: 12:29 Patient arrived in ED. as 13:40 Triage completed. sky 13:40 Arm band placed on right wrist. sky 17:58 Patient's name was called from ER lobby. No response. Unable to locate patient. Will jl7 disposition as left without being seen by a provider. Administered Medications: No medications were administered Outcome: 17:58 Patient left the ED. jl7 Signatures: Lori Morataya Jahala, RN RN jl7 Rosa Maria Tao RN RN sky
[2021-03-03 18:03] VITALS: BP 116/86; TEMP 98.3; O2SAT 100
== END 2021-03-03 17:58 | disposition left against medical advice (07) ==
LOC: ER 12:27
DX: Z53.21 Procedure and treatment not carried out due to patient leaving prior to being seen by health care provider (principal)
CPT/HCPCS: 99281

== ENCOUNTER 2021-04-16 19:26 | Emergency (ER) | payer SELFPAY ==
--- OUTSIDE RECORDS SUMMARY | 2021-04-16 19:30 | XMS REPORT | Continuity of Care Document ---
:1970 Author Organization [facility] t Address [address] [place] [address] Care Team Providers Name Role Phone MARGARITA, [...] TIMATED GFR. CBC W/PLT COUNT & AUTO [id number] 09:08:00 Test Item Value Reference Range Interpretation [...] PERCENT (BEAKER) (test code = 2801) [place], [id number] 21:43:00Reason for exam:->abd painFINAL REPORT Examination: ERCP 2 fluoroscopic spot views were obtained during the procedure by the ordering service. Images are nondiagnostic as no radiologist was present at the time of imaging. Fluoroscopic time was 81.9 seconds. Please see the procedure report for details. Signed: Reyna Buttseport Verified Date/Time: 07/11/2017 21:43:43 Reading Location: [address] Reading Room C METABOLIC [id number] 04:51:00 Test Item Value Reference Range Interpretation [...] ESTIMATED GFR. CBC W/PLT COUNT & AUTO [id number] 04:46:00 Test Item Value Reference Range Interpretation [...] (BEAKER) (test code = 2801) BASIC METABOLIC [id number] 05:02:00 Test Item Value Reference Range Interpretation [...] ESTIMATED GFR. CBC W/PLT COUNT & AUTO [id number] 04:27:00 Test Item Value Reference Range Interpretation [...] PERCENT (BEAKER) (test code = 2801) CT, [id number] 19:19:00Reason for exam:->Abdominal painWhat is the patient's [...] MDReport Verified Date/Time: 07/09/2017 19:19:04 Reading Location: [facility] C013Y CT Body Reading Room PREGNANCY SCREEN, [id number] 19:18:00 Test Item Value Reference Range Interpretation Comments TEST URINE (BEAKER) (test Negative code = 583) BASIC METABOLIC [id number] 14:45:00 Test Item Value Reference Range Interpretation [...] TE ESTIMATED GFR. URINALYSIS W/ REFLEX URINE [id number] 14:33:00 Test Item Value Reference Range Interpretation [...] 0 /HPF SOURCE(BEAKER) (test code = 2795) [id number] 14:29:00 Test Item Value Reference Range Interpretation Comments LIPASE (BEAKER) (test code = 749) 43 U/L 8-78 HEPATIC FUNCTION [id number] 14:29:00 Test Item Value Reference Range Interpretation [...] (test code = 14 U/L 6-55 347) [id number] 14:23:00 Test Item Value Reference Range Interpretation Comments PARTIAL THROMBOPLASTIN TIME 27.7 seconds 22.5-36.0 (BEAKER) (test code = 760) CBC W/PLT COUNT & AUTO [id number] 14:22:00 Test Item Value Reference Range Interpretation [...] PERCENT (BEAKER) (test code = 2801) BLOOD [id number] 17:00:00 Test Item Value Reference Range Interpretation Comments CULTURE (BEAKER) (test No growth in 5 days code = 1095) COMPREHENSIVE METABOLIC [id number] 07:48:00 Test Item Value Reference Range Interpretation [...] DATA T O CALCULATE ESTIM ATED GFR. [id number] 07:44:00 Test Item Value Reference Range Interpretation Comments MAGNESIUM (BEAKER) (test code = 1.7 mg/dL 1.6-2.6 627) HEPATIC FUNCTION [id number] 07:44:00 Test Item Value Reference Range Interpretation [...] = 67 U/L 6-55 H 347) POCT-GLUCOSE [id number] 05:37:00 Test Item Value Reference Range Interpretation Comments POC-GLUCOSE METER 101 mg/dL 70-[address] [facility] 67[address] (KELLE) (test code = [place] 1538) [address] CT, ABDOMEN - PELVIS, PANCREAS [id number] 03:30:00Reason for exam:- >recurrent pancreatitisFINAL REPORT CLINICAL [...] MDReport Verified Date/Time: 03/01/2017 03:30:46 Reading Location: [address] Reading Room Electronicallysigned by: REYNA BUTTS M.D. on 03/01/2017 03:30 AMPOCT-GLUCOSE [id number] 00:34:00 Test Item Value Reference Range Interpretation Comments POC-GLUCOSE METER 85 mg/dL 70-110 TESTED AT [place] [address] (BEAKER) (test code = [facility] [address] 1538) POCT-GLUCOSE [id number] 17:59:00 Test Item Value Reference Range Interpretation Comments POC-GLUCOSE METER 85 mg/dL 70-110 TESTED AT [place] [address] (BEAKER) (test code = [facility] [address] 1538) POCT-GLUCOSE [id number] 11:39:00 Test Item Value Reference Range Interpretation Comments POC-GLUCOSE METER 84 mg/dL 70-110 TESTED AT [place] [address] (BEAKER) (test code = [facility] [address] 1538) HEPATIC FUNCTION [id number] 07:46:00 Test Item Value Reference Range Interpretation [...] 76 U/L 6-55 H 347) BASIC METABOLIC [id number] 07:29:00 Test Item Value Reference Range Interpretation [...] ESTIMATED GFR. CBC W/PLT COUNT & AUTO [id number] 07:12:00 Test Item Value Reference Range Interpretation [...] 0-1 PERCENT (BEAKER) (test code = 2801) [id number] 06:42:00 Test Item Value Reference Range Interpretation [...] 2.5-3.5 for patients with mechanical heart valves.POCT-GLUCOSE [id number] 05:42:00 Test Item Value Reference Range Interpretation Comments POC-GLUCOSE METER 109 mg/dL 70-[address] [facility] 67[address] ([facility]) (test code = [place] [address]) [address] POCT-GLUCOSE [id number] 23:11:00 Test Item Value Reference Range Interpretation Comments POC-GLUCOSE METER 124 mg/dL 70-110 H TESTED AT [place] [address] ([facility]) (test code = [place] 15[address]) [address] POCT-GLUCOSE [id number] 17:35:00 Test Item Value Reference Range Interpretation Comments POC-GLUCOSE METER 147 mg/dL 70-110 H TESTED AT [place] [address] ([facility]) (test code = [place] [facility] 1538) [address] HEPATIC FUNCTION [id number] 13:30:00 Test Item Value Reference Range Interpretation [...] = 101 U/L 6-55 H 347) POCT-GLUCOSE [id number] 11:51:00 Test Item Value Reference Range Interpretation Comments POC-GLUCOSE METER 124 mg/dL 70-110 H TESTED AT [place] [address] ([facility]) (test code = [place] [facility] 1538) [address] [place], 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 67[address] (BEAKER) (test code = [place] [address]) [address] [id number] 06:46:00 Test Item Value Reference Range Interpretation Comments MAGNESIUM (BEAKER) (test code = 1.9 mg/dL 1.6-2.6 627) BASIC METABOLIC [id number] 06:46:00 Test Item Value Reference Range Interpretation [...] m DATA TO CALCULA TE ESTIMATED GFR. [id number] 06:36:00 Test Item Value Reference Range Interpretation [...] 417) IMMATURE GRANULOCYTES-RELATIVE 1 % 0-1 PERCENT ([facility]) (test code = 2801) POCT-GLUCOSE [id number] 01:03:00 Test Item Value Reference Range Interpretation Comments POC-GLUCOSE METER 114 mg/dL 70-[address] [facility] 67 ([facility]) (test code = [place] [facility] 1538) [address] POCT-GLUCOSE [id number] 21:52:00 Test Item Value Reference Range Interpretation Comments POC-GLUCOSE METER 83 mg/dL 70-110 TESTED AT [place] [address] ([facility]) (test code = [facility] [place] [facility] [address]38) POCT-GLUCOSE [id number] 18:04:00 Test Item Value Reference Range Interpretation Comments POC-GLUCOSE METER 123 mg/dL 70-110 H TESTED AT [place] [address] ([facility]) (test code = [facility] Dasha [facility] 1538) [address] POCT-GLUCOSE [id number] 11:34:00 Test Item Value Reference Range Interpretation Comments POC-GLUCOSE METER 108 mg/dL 70-110 TESTED AT [place] [address] ([facility]) (test code = [facility] Dasha [facility] 1538) [address] [id number] 09:45:00 Test Item Value Reference Range Interpretation Comments MAGNESIUM (BEAKER) (test code = 1.7 mg/dL 1.6-2.6 627) [id number] 08:55:00 Test Item Value Reference Range Interpretation Comments LIPASE (BEAKER) (test code = 749) 605 U/L 8-78 H Specimen slightly ictericU/S, ABDOMINAL, [id number] 06:47:00Reason for exam:->abdominal painFINAL REPORT U/S, ABDOMINAL, [...] MDReport Verified Date/Time: 02/26/2017 06:47:30 Reading Location: [facility] C0X [facility] Consult Reading Room BASIC METABOLIC [id number] 06:18:00 Test Item Value Reference Range Interpretation [...] Specimen slightly ictericRAD, CHEST, 1 VIEW, NON [id number] 06:00:00Reason for exam:->PICC placement Should this be [...] MDReport Verified Date/Time: 02/26/2017 06:00:21 Reading Location: [facility] C013X Ortho Consult Reading Room URINALYSIS W/ [id number] 05:24:00 Test Item Value Reference Range Interpretation [...] 1584) SOURCE(BEAKER) (test code = Urine, Voided 5858) SCREEN, [id number] 05:24:00 Test Item Value Reference Range Interpretation Comments TEST URINE (BEAKER) (test Negative code = 583) [id number] 05:17:00 Test Item Value Reference Range Interpretation [...] (BEAKER) (test code = 2801) BASIC METABOLIC [id number] 01:21:00 Test Item Value Reference Range Interpretation [...] TE ESTIMATED GFR. Specimen slightly ictericHEPATIC FUNCTION [id number] 01:11:00 Test Item Value Reference Range Interpretation [...] Specimen slightly ictericCBC W/PLT COUNT & AUTO [id number] 00:24:00 Test Item Value Reference Range Interpretation [...] % 0-1 PERCENT (BEAKER) (test code = 1010)
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
[2021-04-16] MEDS ORDERED: HYDROCODONE/APAP 10/325 TAB ONE (20:49)
[2021-04-16] MEDS ORDERED: DIAZEPAM 5 MG TABLET ONE (20:50)
[2021-04-16] MEDS ORDERED: IBUPROFEN 200 MG TAB PO ONE (20:50)
[2021-04-16] MEDS ORDERED: IBUPROFEN 400 MG TAB ONE (20:50)
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
[2021-04-16 23:25] VITALS: BP 118/72; O2SAT 98
[2021-04-16 23:27] VITALS: TEMP 98.4
== END 2021-04-16 22:40 | disposition home or self-care (01) ==
LOC: ER 19:26
DX: S16.1XXA Strain of muscle, fascia and tendon at neck level, initial encounter (principal); S40.012A Contusion of left shoulder, initial encounter; V49.40XA Driver injured in collision with unspecified motor vehicles in traffic accident, initial encounter
CPT/HCPCS: 71045; 72125; 99285

== ENCOUNTER 2022-03-23 11:00 | Emergency (ER) | payer SELFPAY ==
--- OUTSIDE RECORDS SUMMARY | 2022-03-23 11:05 | XMS REPORT | Continuity of Care Document ---
:1970 Author Organization [facility] t Address [address] [place] [address] Care Team Providers Name Role Phone Sharpless Primary Care Physician ROQUE AVILA Attending Clinician Unavailable TANYA KENYON Attending Clinician Unavailable LILA PERALTA Admitting Clinician Unavailable TANYA KENYON Admitting Clinician Unavailable Problems Condition Condition Condition Status Onset Resolution Last Treating Co mments Source Name Details Category Date Date Treatment Clinician Date Right Right Disease Active [facility] l abdominal abdominal 00 Cent er pain pain Severe Severe Disease Active [facility] protein-ca protein-ca 1-05 Aleta julio woodward 00:00: Medical malnutriti malnutriti 00 Ce nter on on Recurrent Recurrent Disease Active 2016-[address] [facility] pancreatit pancreatit 2-24 Aleta kes is is 00:00: [facility] Allergies, Adverse Reactions, Alerts This patient has no known allergies or adverse reactions. Social History Social Habit Start Date Stop Date Quantity Comments Source Alcohol intake 2017-07-12 2017-07-12 [facility]00 non-drinker of Medical Ce nter alcohol (finding) Cigarettes smoked 2017-02-25 2017-02-[address] [facility] current (pack per 00:00:00 [facility]:00 [facility] day) - Reported Cigarette 2017-02-25 2017-02-[address] [facility] pack-years 00:00:00 00:00:00 [facility] Tobacco use and 2017-02-25 2017-02-[address] [facility] [address] [facility] exposure 00:00:00 00:00:00 [facility] History of tobacco 2017-02-12 [address] [facility] use 00[facility]00[facility]00 [facility] Center Sex Assigned At [birth year] KALPANA Silverman 00:00:00 00:00:00 [facility] Smoking Status Start Date Stop Date Source Former smoker 2017-02-25 00:00:00 2017-02-25 00:00:[address] [facility] Smokes tobacco daily 2016-08-22 00:00:00 [facility] Medications Ordered Filled Start Stop Current Ordering Indication Dosage Frequency Signature Comments Components Source Medication Medication Date Date Medication? Clinician (SIG) Name Name No known No No known Metho di medications 6-[address] 03:08: [facility] Procedures This patient has no known procedures. Plan of Care Planned Activity Planned Date Details Comments Source Future Scheduled 2022-03-14 COLONOSCOPY SCREENING [facility] Test 09:33:25 [code = COLONOSCOPY SCREENING] Future Scheduled 2022-03-14 SHINGLES VACCINES (1 Met [facility] Test 09:33:25 of 2) [code = SHINGLES VACCINES (1 of 2)] Future Scheduled 2022-03-14 INFLUENZA VACCINE Method [facility] Test 09:33:25 [code = INFLUENZA VACCINE] Future Scheduled 2022-03-14 COVID-19 VACCINE (#1) [facility] Test 09:33:25 [code = COVID-19 VACCINE (#1)] Future Scheduled 2022-03-14 Screening for [facility] Test 09:33:25 malignant neoplasm of cervix (procedure) [code = 912849859] Future Scheduled 2022-03-14 BREAST CANCER [facility] Test 09:33:25 SCREENING [code = BREAST CANCER SCREENING] Results Test Description Test Time Test Comments [...] TIMATED GFR. CBC W/PLT COUNT & AUTO [id number] 09:08:00 Test Item Value Reference Range Interpretation [...] 0-1 PERCENT (BEAKER) (test code = 2801) [facility] [id number] 21:43:00Reason for exam:->abd painFINAL REPORT Examination: ERCP 2 fluoroscopic spot views were obtained during the procedure by the ordering service. Images are nondiagnostic as no radiologist was present at the time of imaging. Fluoroscopic time was 81.9 seconds. Please see the procedure report for details. Signed: Hayden Fangepmatt Verified Date/Time: 07/11/2017 21:43:43 Reading Location: [address] Reading Room BASI METABOLIC [id number] 04:51:00 Test Item Value Reference Range Interpretation [...] ESTIMATED GFR. CBC W/PLT COUNT & AUTO [id number] 04:46:00 Test Item Value Reference Range Interpretation [...] (BEAKER) (test code = 2801) BASIC METABOLIC [id number] 05:02:00 Test Item Value Reference Range Interpretation [...] ESTIMATED GFR. CBC W/PLT COUNT & AUTO [id number] 04:27:00 Test Item Value Reference Range Interpretation [...] PERCENT (BEAKER) (test code = 2801) CT, [id number] 19:19:00Reason for exam:->Abdominal painWhat is the patient's [...] no dilated loops of bowel seen to suggestobstruction. The appendix is not well seen but no obvious signs of appendicitis are noted. There is no free fluid or free air. No suspicious adenopathy is seen. The aorta is normal in caliber. Atherosclerosis is identified. Bone windows demonstrate degenerative changes. Fusion of the sacroiliac jointsis seen and a seronegative spondyloarthropathy cannot be excluded. IMPRESSION:1. Stent within the rosado creatic duct with a cyst in the pancreatic head, smaller than on previous.2. Appendix not well seen.3. Fusion of the sacroiliac joints. Clinical correlation to exclude a seronegative spondyloarthropathy is recommended Signed: Sj Palacios MDReport Verified Date/Time: 07/09/2017 19:19:04 Reading Location: [place] [address] CT Body Reading Room 07:19 PMPREGNANCY SCREEN, [id number] 19:18:00 Test Item Value Reference Range Interpretation Comments TEST URINE (BEAKER) (test Negative code = 583) BASIC METABOLIC [id number] 14:45:00 Test Item Value Reference Range Interpretation [...] TE ESTIMATED GFR. URINALYSIS W/ REFLEX URINE [id number] 14:33:00 Test Item Value Reference Range Interpretation [...] 0 /HPF SOURCE(BEAKER) (test code = 2795) [id number] 14:29:00 Test Item Value Reference Range Interpretation Comments LIPASE (BEAKER) (test code = 749) 43 U/L 8-78 HEPATIC FUNCTION [id number] 14:29:00 Test Item Value Reference Range Interpretation [...] (test code = 14 U/L 6-55 347) [id number] 14:23:00 Test Item Value Reference Range Interpretation Comments PARTIAL THROMBOPLASTIN TIME 27.7 seconds 22.5-36.0 (BEAKER) (test code = 760) CBC W/PLT COUNT & AUTO [id number] 14:22:00 Test Item Value Reference Range Interpretation [...] PERCENT (BEAKER) (test code = 2801) BLOOD [id number] 17:00:00 Test Item Value Reference Range Interpretation Comments CULTURE (BEAKER) (test No growth in 5 days code = 1095) COMPREHENSIVE METABOLIC [id number] 07:48:00 Test Item Value Reference Range Interpretation [...] DATA T O CALCULATE ESTIM ATED GFR. [id number] 07:44:00 Test Item Value Reference Range Interpretation Comments MAGNESIUM (BEAKER) (test code = 1.7 mg/dL 1.6-2.6 627) HEPATIC FUNCTION [id number] 07:44:00 Test Item Value Reference Range Interpretation [...] = 67 U/L 6-55 H 347) POCT-GLUCOSE [id number] 05:37:00 Test Item Value Reference Range Interpretation Comments POC-GLUCOSE METER 101 mg/dL 70-[address] [facility] 6720 (BEAKER) (test code = K[place]BY H[place] MD 1538) [address] CT, ABDOMEN - PELVIS, PANCREAS [id number] 03:30:00Reason for exam:- >recurrent pancreatitisFINAL REPORT CLINICAL HISTORY: Recurrent pancreatitis, complicated FINDINGS: Multiple axial images of the abdomen and pelvis were performed before and after the uncomplicated admini stration of IV contrast. Oral contrast was not given. This exam was performed according to our departmental dose-optimization program, which includes automated exposure control, adjustment of the mA and/or kV according to patient size and/or use of the iterative reconstruction technique. Comparison: Outside CT dated 02/22/2017 Lower chest: Curvilinear atelectasis versus scarring in the lung bases. Nopleural effusion or pneumothorax. Visualized cardiac contours normal. Liver: No significant findings. Gallbladder and biliary tree: Plastic common bile duct stent in place. Trace pneumobilia including gas in the gallbladder lumen likely related to stent placement. No biliary ductal dilatation. Spleen:No significant findings. Adrenal Glands: No significant findings. Kidneys and ureters: No significant findings. Stomach and Duodenum: The distal stomach and proximal duodenum are displaced by a prominent pancreatic fluid collection. Pancreas: Multiple circumscribed fluid collections related to the pancreas, probably pseudocysts. The largest is in the pancreatic head measures 7.7 x 5.9 cm. A pancreatic duct stent in place. No Ductal dilatation is present. There is peripancreatic fat stranding. Several prominent but subcentimeter peripancreatic and nasreen hepatis lymph nodes are probably reactive. Bowel: No significant findings. Appendix: Nonvisualized. No right [...] probably reactive. Attention on follow-up. Signed: Hayden Fang Verified Date/Time: 03/01/2017 03:30:46 Reading Location: [address] Reading Room POCT-GLUCOSE METER 2017-03-01 00:34:00 Test Item Value Reference Range Interpretation Comments POC-GLUCOSE METER 85 mg/dL 70-110 TESTED AT [place] [address] ([facility]) (test code = REBECAAR Dasha [facility] [address] 1538) POCT-GLUCOSE [id number] 17:59:00 Test Item Value Reference Range Interpretation Comments POC-GLUCOSE METER 85 mg/dL 70-110 TESTED AT [place] [address] ([facility]) (test code = KELBY Lou [facility] [address] 1538) POCT-GLUCOSE [id number] 11:39:00 Test Item Value Reference Range Interpretation Comments POC-GLUCOSE METER 84 mg/dL 70-[address] [facility] 6720 (BEAKER) (test code = [place] [address] 9968) HEPATIC FUNCTION [id number] 07:46:00 Test Item Value Reference Range Interpretation [...] 76 U/L 6-55 H 347) BASIC METABOLIC [id number] 07:29:00 Test Item Value Reference Range Interpretation [...] ESTIMATED GFR. CBC W/PLT COUNT & AUTO [id number] 07:12:00 Test Item Value Reference Range Interpretation [...] 0-1 PERCENT (BEAKER) (test code = 2801) [id number] 06:42:00 Test Item Value Reference Range Interpretation Comments PROTIME ([facility]) (test code = 16.7 seconds 11.7-14.7 H 759) INR ([facility]) (test code = 370) 1.4 <=5.9 PARTIAL THROMBOPLASTIN TIME 31.5 seconds 22.5-36.0 ([facility]) (test code = 760) RECOMMENDED COUMADIN/WARFARIN INR THERAPY RANGESSTANDARD DOSE: 2.0 - 3.0 Includes: PROPHYLAXIS for venous thrombosis, systemic embolization; TREATMENT for venous thrombosis and/or pulmonary embolus.HIGH RISK: Target INR is 2.5-3.5 for patients with mechanical heart valves.POCT-GLUCOSE [id number] 05:42:00 Test Item Value Reference Range Interpretation Comments POC-GLUCOSE METER 109 mg/dL 70-110 TESTED AT [place] [address] ([facility]) (test code = [facility] 1538) [address] POCT-GLUCOSE [id number] 23:11:00 Test Item Value Reference Range Interpretation Comments POC-GLUCOSE METER 124 mg/dL 70-110 H TESTED AT [place] [address] ([facility]) (test code = [facility] 1538) [address] POCT-GLUCOSE [id number] 17:35:00 Test Item Value Reference Range Interpretation Comments POC-GLUCOSE METER 147 mg/dL 70-110 H TESTED AT [place] [address] ([facility]) (test code = [facility] 1538) [address] HEPATIC FUNCTION [id number] 13:30:00 Test Item Value Reference Range Interpretation Comments TOTAL PROTEIN ([facility]) (test code = 7.1 gm/dL 6.0-8.3 770) ALBUMIN ([facility]) (test code = 1145) 3.0 g/dL 3.5-5.0 L BILIRUBIN TOTAL ([facility]) (test code 1.6 mg/dL 0.2-1.2 H = 377) BILIRUBIN DIRECT ([facility]) (test 1.0 mg/dL 0.1-0.5 H code = 706) ALKALINE PHOSPHATASE (AKER) (test 602 U/L 40-150 H code = 346) AST (SGOT) ([facility]) (test code = 140 U/L 5-34 H 353) ALT (SGPT) ([facility]) (test code = 101 U/L 6-55 H 347) POCT-GLUCOSE [id number] 11:51:00 Test Item Value Reference Range Interpretation Comments POC-GLUCOSE METER 124 mg/dL 70-[address] [facility] 6720 ([facility]) (test code = KELBY Lou [facility] 1538) [address] [place], IT BUSINESS PROCESS ARCHITECT IN OR/30 MINUTE [id number] 10:30:00Reason for exam:->ercpFINAL REPORT Intraoperative fluoroscopy films performed by the referring physician. Number of images: 10Fluoroscopic time: 106 seconds The films were submitted to PACS postprocedure. The radiologist was not present at the time of examination. An interpretation was not requested. The submitted images are nondiagnostic without real-time visualization. Please refer to the performingphysician's dictation for any and all details regarding the procedure including the submitted images. The radiologist did not perform fluoroscopy. Signed: Lashell Vera Verified Date/Time: 02/27/2017 10:30:02 Reading Location: [facility] Radiology Reading Room POCT-GLUCOSE METER 2017-02-27 06:54:00 Test Item Value Reference Range Interpretation Comments POC-GLUCOSE METER 113 mg/dL 70-[address] [facility] 6720 ([facility]) (test code = [facility] Dasha [facility] 1538) [id number] 06:46:00 Test Item Value Reference Range Interpretation Comments MAGNESIUM (BEAKER) (test code = 1.9 mg/dL 1.6-2.6 627) BASIC METABOLIC [id number] 06:46:00 Test Item Value Reference Range Interpretation [...] m DATA TO CALCULA TE ESTIMATED GFR. [id number] 06:36:00 Test Item Value Reference Range Interpretation Comments PROTIME (BEAKER) (test code = 16.1 seconds 11.7-14.7 H 759) INR (BEAKER) (test code = 370) 1.3 <=5.9 PARTIAL THROMBOPLASTIN TIME 33.1 seconds 22.5-36.0 (BEAKER) (test code = 760) RECOMMENDED COUMADIN/WARFARIN INR THERAPY RANGESSTANDARD DOSE: 2.0 - 3.0 Includes: PROPHYLAXIS for venous thrombosis, systemic embolization; TREATMENT for venous thrombosis and/or pulmonary embolus.HIGH RISK: Target INR is 2.5-3.5 for patients with mechanical heart valves.CBC W/PLT COUNT & AUTO [id number] 06:29:00 Test Item Value Reference Range Interpretation [...] PERCENT (BEAKER) (test code = 2801) POCT-GLUCOSE [id number] 01:03:00 Test Item Value Reference Range Interpretation Comments POC-GLUCOSE METER 114 mg/dL 70-110 H TESTED [place] [address] [facility] 1538) [address] POCT-GLUCOSE [id number] 21:52:00 Test Item Value Reference Range Interpretation Comments POC-GLUCOSE METER 83 mg/dL 70-110 TESTED AT [place] [address] [facility] (test code = [facility] Dasha [facility] [address] 1538) POCT-GLUCOSE [id number] 18:04:00 Test Item Value Reference Range Interpretation Comments POC-GLUCOSE METER 123 mg/dL 70-110 H TESTED AT [place] [address] [facility] ([facility] = [facility] 1538) [address] POCT-GLUCOSE [id number] 11:34:00 Test Item Value Reference Range Interpretation Comments POC-GLUCOSE METER 108 mg/dL 70-110 TESTED AT [place] [address] (KELLE) (test code = [place] 1538) [address] [id number] 09:45:00 Test Item Value Reference Range Interpretation Comments MAGNESIUM (KELLE) (test code = 1.7 mg/dL 1.6-2.6 627) [id number] 08:55:00 Test Item Value Reference Range Interpretation Comments LIPASE (KELLE) (test code = 749) 605 U/L 8-78 H Specimen slightly ictericU/S, ABDOMINAL, [id number] 06:47:00Reason for exam:->abdominal painFINAL REPORT U/S, ABDOMINAL, COMPLETE INDICATION: "abdominal pain" COMPARISON: None. TECHNIQUE: Real-time transabdominal roberts scale and color Doppler ultrasound of the abdomen. FIND INGS:8.7 x 6.9 x 0.7 cm fluid collection near the head of the pancreas. There is some debris within this fluid collection in the wall is somewhat thick. Additionally, there is a smaller 2.5 x 1.3 x 2.3cm hypoechoic structure in the parenchyma of the pancreatic head. This is probably also a fluid collection despite the ability to fully clear the internal echoes.Moderate intrahepatic bile duct dilation.CBD is enlarged at 8 mm.Biliary sludge. Borderline gallbladder wall thickening. Mild pericholecystic fluid.Sonographic Spencer's sign is positive.Visualized portions of the kidneys are unremarkable without obvious hydronephrosis.Spleen is not enlarged.The visualized portions of the IVC and aorta are unremarkable. IMPRESSION: Large, thick-walled cystic structure with some internal debris centered around the pancreatic head. The ultrasound appearance is nonspecific, however statistically, this probably reflects a pseudocyst.Intra and extrahepatic bile duct dilation concerning for choledocholithiasis versus compression of the distal CBD by the presumed pseudocyst.Evaluation for acute cholecystitis iscomplicated by the presence of a pseudocyst and therefore, many of the ultrasound finding such as wall thickening, pericholecystic fluid, and the Spencer's sign are unreliable.CT recommended for furtherevaluation. Signed: Chucho Dempsey MDReport Verified Date/Time: 02/26/2017 06:47:30 Reading Location: [address] Consult Reading Room 06:47 AM BASIC METABOLIC [id number] 06:18:00 Test Item Value Reference Range Interpretation [...] Specimen slightly ictericRAD, CHEST, 1 VIEW, NON [id number] 06:00:00Reason for exam:->PICC placement Should this be performed at the bedside?->Yes FINAL REPORT RAD, CHEST, 1 VIEW, NON DEPT INDICATION: PICC placement COMPARISON: None TECHNIQUE: Portable frontal view of the chest. IMPRESSION: Left-sided PICC line terminates at the atriocaval junction.Cardiomediastinal silhouette stable.Linear opacity in the periphery of the lower right hemithorax which could reflect atelectasis or scarring. The lungs are otherwise clear.No acute osseous abnormality. Signed: Chucho Dempsey MDReport Verified Date/Time: 02/26/2017 06:00:21 Reading Location: [address] Ortho Consult Reading Room URINALYSIS W/ [id number] 05:24:00 Test Item Value Reference Range Interpretation [...] 1584) SOURCE(BEAKER) (test code = Urine, Voided 4477) SCREEN, [id number] 05:24:00 Test Item Value Reference Range Interpretation Comments TEST URINE (BEAKER) (test Negative code = 583) [id number] 05:17:00 Test Item Value Reference Range Interpretation Comments PROTIME (BEAKER) (test code = 15.0 seconds 11.7-14.7 H 759) INR (BEAKER) (test code = 370) 1.2 <=5.9 PARTIAL THROMBOPLASTIN TIME 32.6 seconds 22.5-36.0 (BEAKER) (test code = 760) RECOMMENDED COUMADIN/WARFARIN INR THERAPY RANGESSTANDARD DOSE: 2.0 - 3.0 Includes: PROPHYLAXIS for venous thrombosis, systemic embolization; TREATMENT for venous thrombosis and/or pulmonary embolus.HIGH RISK: Target INR is 2.5-3.5 for patients with mechanical heart valves.CBC W/PLT COUNT & AUTO [id number] 05:14:00 Test Item Value Reference Range Interpretation [...] (BEAKER) (test code = 2801) BASIC METABOLIC [id number] 01:21:00 Test Item Value Reference Range Interpretation [...] TE ESTIMATED GFR. Specimen slightly ictericHEPATIC FUNCTION [id number] 01:11:00 Test Item Value Reference Range Interpretation [...] Specimen slightly ictericCBC W/PLT COUNT & AUTO [id number] 00:24:00 Test Item Value Reference Range Interpretation [...] % 0-1 PERCENT (BEAKER) (test code = 8771)
[2022-03-23] MEDS ORDERED: METHYLPREDNISOLONE 125 MG INJ ONE (11:37)
--- NOTE | 2022-03-23 11:42 | ER ---
Nurse's Notes [facility] Name: Shell Howard Age: 51 yrs Sex: Female : 1970 Arrival Date: 03/23/2022 Time: 11:03 Bed 17 Private MD: Diagnosis: Insect bite (nonvenomous) of thigh-Right and left proximal medial Presentation: 03/23 11:06 Chief complaint: Patient states: ant bit me in between my legs , happened yesterday , iw she saw a large ant in her bed. Coronavirus screen: At this time, the client does not indicate any symptoms associated with coronavirus-19. Ebola Screen: Patient negative for fever greater than or equal to 101.5 degrees Fahrenheit, and additional compatible Ebola Virus Disease symptoms Patient denies exposure to infectious person. Patient denies travel to an Ebola-affected area in the 21 days before illness onset. No symptoms or risks identified at this time. Initial Sepsis Screen: Does the patient meet any 2 criteria? No. Patient's initial sepsis screen is negative. Does the patient have a suspected source of infection? No. Patient's initial sepsis screen is negative. Risk Assessment: Do you want to hurt yourself or someone else? Patient reports no desire to harm self or others. Onset of symptoms was March 22, 2022. 11:06 Method Of Arrival: Ambulatory iw 11:06 Acuity: COSME 4 iw 11:06 Acuity: COSME 3 iw Triage Assessment: 11:47 Bite description: bite sustained to medial aspect of left thigh by a fire ant, animal ko1 information: vaccination(s). General: Appears in no apparent distress. Behavior is calm, cooperative, appropriate for age. 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 - Social history:: Smoking status: Patient reports the use of cigarette tobacco products, smokes one pack cigarettes per day. Screenin:30 [facility] ED Fall Risk Assessment (Adult) History of falling in the last 3 months, ko1 including since admission No falls in past 3 months (0 pts) Confusion or Disorientation No (0 pts) Intoxicated or Sedated No (0 pts) Impaired Gait No (0 pts) Mobility Assist Device Used No (0 pt) Altered Elimination No (0 pt) Score/Fall Risk Level 0 - 2 = Low Risk Oriented to surroundings, Maintained a safe environment, Educated pt \T\ family on fall prevention, incl call for assistance when getting out of bed, Assessed \T\ reinforced patient's understanding of fall precautions, Provided non-skid footwear, Hourly rounding (assess needs \T\ fall precautionary measures) done, Used ambulatory aids as needed (educated on \T\ assisted with), Used gait belt as appropriate. Abuse screen: Denies threats or abuse. Denies injuries from another. Nutritional screening: No deficits noted. Tuberculosis screening: No symptoms or risk factors identified. Assessment: 11:30 General: Appears in no apparent distress. uncomfortable, Behavior is calm, cooperative, ko1 appropriate for age. Pain: Complains of pain in medial aspect of left thigh. Neuro: No deficits noted. Cardiovascular: No deficits noted. Respiratory: No deficits noted. GI: No deficits noted. : No deficits noted. EENT: No deficits noted. Derm: Skin is intact, Skin is red at the bite location. Musculoskeletal: No deficits noted. Vital Signs: 11:06 BP 117 / 93; Pulse 87; Resp 16; Temp 97.0; Pulse Ox 100% on R/A; iw ED Course: 11:03 Patient arrived in ED. mr 11:07 Triage completed. iw 11:08 Arm band placed on. iw 11:12 Dangelo Galarza MD is Attending Physician. kdr 11:15 Iesha Shelton, RENZO is Primary Nurse. ko1 11:30 Patient has correct armband on for positive identification. Placed in gown. Bed in low ko1 position. Call light in reach. Pulse ox on. NIBP on. 11:30 No provider procedures requiring assistance completed. Patient did not have IV access ko1 during this emergency room visit. Administered Medications: 11:40 Drug: SOLU-Medrol (methylPREDNISolone sodium succinate) 125 mg Route: IM; Site: right ko1 gluteus; 11:53 Follow up: Response: No adverse reaction ko1 11:41 Drug: Ibuprofen 800 mg Route: PO; ko1 11:53 Follow up: Response: No adverse reaction ko1 Medication: 11:30 VIS not applicable for this client. ko1 Outcome: 11:30 Discharged to home ambulatory. ko1 11:30 Condition: good 11:30 Discharge instructions given to patient, Instructed on discharge instructions, follow up and referral plans. medication usage, Demonstrated understanding of instructions, follow-up care, medications, Prescriptions given X 3. 11:42 Discharge ordered by . kdr 11:56 Patient left the ED. ko1 Signatures: Dangelo Galarza MD MD [facility], Christy mr Yelena Dunn RN RN iw Iesha Shelton RN RN ko1 Corrections: (The following items were deleted from the chart) 11:08 11:07 PMHx: Inflammation of Joints \T\ Muscles in Chest \T\ Ribs; iw iw
--- NOTE | 2022-03-23 11:42 | EDPHYS ---
Physician Documentation [facility] Name: Shell Howard Age: 51 yrs Sex: Female : 1970 Arrival Date: 03/23/2022 Time: 11:03 Bed 17 Private MD: ED Physician Dangelo Galarza HPI: 03/23 12:40 This 51 yrs old Female presents to ER via Ambulatory with complaints of Insect kdr Bite. 12:40 Patient states that she was bitten by an ant yesterday. It was a large black and. She kdr had slipped on some shorts to go outside with her dog and at that time she noted the bites. She states that normally she has some mild to minor reaction to ant bites but this time her inner thighs where the bites occurred were very red and inflamed tender and tingling. She denies any more systemic symptoms at this time. She is nontoxic-appearing. Onset: The symptoms/episode began/occurred yesterday, last night. Severity of symptoms: At their worst the symptoms were moderate in the emergency department the symptoms are unchanged. The patient has not experienced similar symptoms in the past. The patient has not recently seen a physician. Patient had taken 9 Benadryl 25 mg x 4 between last evening and this morning. She has had minimal relief from that treatment. 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 - Social history:: Smoking status: Patient reports the use of cigarette tobacco products, smokes one pack cigarettes per day. ROS: 12:40 Constitutional: Negative for fever, chills, and weight loss, Eyes: Negative for injury, kdr pain, redness, and discharge, ENT: Negative for injury, pain, and discharge, Neck: Negative for injury, pain, and swelling, Cardiovascular: Negative for chest pain, palpitations, and edema, Respiratory: Negative for shortness of breath, cough, wheezing, and pleuritic chest pain, Abdomen/GI: Negative for abdominal pain, nausea, vomiting, diarrhea, and constipation, Back: Negative for injury and pain, : Negative for injury, bleeding, discharge, and swelling, MS/Extremity: Negative for injury and deformity, Neuro: Negative for headache, weakness, numbness, tingling, and seizure activity. Psych: Negative for depression, anxiety, suicide ideation, homicidal ideation, and hallucinations, Allergy/Immunology: Negative for hives, rash, and allergies, Endocrine: Negative for neck swelling, polydipsia, polyuria, polyphagia, and marked weight changes, Hematologic/Lymphatic: Negative for swollen nodes, abnormal bleeding, and unusual bruising. 12:40 Skin: Positive for erythema, swelling. Exam: 12:40 Constitutional: This is a well developed, well nourished patient who is awake, alert, kdr and in no acute distress. Head/Face: Normocephalic, atraumatic. Eyes: Pupils equal round and reactive to light, extra-ocular motions intact. Lids and lashes normal. Conjunctiva and sclera are non-icteric and not injected. Cornea within normal limits. Periorbital areas with no swelling, redness, or edema. Neck: Trachea midline, no thyromegaly or masses palpated, and no cervical lymphadenopathy. Supple, full range of motion without nuchal rigidity, or vertebral point tenderness. No Meningismus. Chest/axilla: Normal chest wall appearance and motion. Nontender with no deformity. No lesions are appreciated. Cardiovascular: Regular rate and rhythm with a normal S1 and S2. No gallops, murmurs, or rubs. Normal PMI, no JVD. No pulse deficits. Respiratory: Lungs have equal breath sounds bilaterally, clear to auscultation and percussion. No rales, rhonchi or wheezes noted. No increased work of breathing, no retractions or nasal flaring. Abdomen/GI: Soft, non-tender, with normal bowel sounds. No distension or tympany. No guarding or rebound. No evidence of tenderness throughout. Back: No spinal tenderness. No costovertebral tenderness. Full range of motion. MS/ Extremity: Pulses equal, no cyanosis. Neurovascular intact. Full, normal range of motion. Neuro: Awake and alert, GCS 15, oriented to person, place, time, and situation. Cranial nerves II-XII grossly intact. Motor strength 5/5 in all extremities. Sensory grossly intact. Cerebellar exam normal. Normal gait. Psych: Awake, alert, with orientation to person, place and time. Behavior, mood, and affect are within normal limits. 12:40 Skin: Appearance: normal except for affected area, lesion(s), noted, and can be described as erythematous, flat, tender, violaceous. Vital Signs: 11:06 BP 117 / 93; Pulse 87; Resp 16; Temp 97.0; Pulse Ox 100% on R/A; iw MDM: 11:42 Patient medically screened. kdr 12:40 Data reviewed: vital signs, nurses notes. kdr Administered Medications: 11:40 Drug: SOLU-Medrol (methylPREDNISolone sodium succinate) 125 mg Route: IM; Site: right ko1 gluteus; 11:53 Follow up: Response: No adverse reaction ko1 11:41 Drug: Ibuprofen 800 mg Route: PO; ko1 11:53 Follow up: Response: No adverse reaction ko1 Disposition Summary: 03/23/22 11:42 Discharge Ordered Location: Home kdr Condition: Stable kdr Diagnosis - Insect bite (nonvenomous) of thigh - Right and left proximal medial kdr Followup: kdr - With: Private Physician - When: 2 - 3 days - Reason: If symptoms return, Further diagnostic work-up, Recheck today's complaints, Continuance of care, Re-evaluation by your physician Discharge Instructions: - Discharge Summary Sheet kdr - Insect Bite, Adult, [id number] kdr Forms: - Medication Reconciliation Form kdr - Thank You Letter kdr - Antibiotic Education kdr - Prescription Opioid Use kdr - Work release form ko1 Prescriptions: - Cephalexin 500 mg Oral Capsule - take 1 capsule by ORAL route every 6 hours for 5 days; 20 capsule; Refills: 0, kdr Product Selection Permitted - Tramadol 50 mg Oral Tablet - take 1 tablet by ORAL route every 8 hours as needed; 12 tablet; Refills: 0, kdr Product Selection Permitted - Medrol (Caden) 4 mg Oral Tablets, Dose Pack - take 1 tablet by ORAL route as directed - follow package instructions; 1 kdr packet; Refills: 0, Product Selection Permitted Signatures: Dangelo Galarza MD MD kdr Yelena Dunn RN RN iw Iesha Shelton RN RN ko1 Corrections: (The following items were deleted from the chart) 11:08 11:07 PMHx: Inflammation of Joints \T\ Muscles in Chest \T\ Ribs; iw iw
[2022-03-23] MEDS ORDERED: IBUPROFEN 400 MG TAB ONE (11:44)
[2022-03-23 12:07] VITALS: BP 117/93; TEMP 97; O2SAT 100
== END 2022-03-23 11:56 | disposition home or self-care (01) ==
LOC: ER 11:00
DX: S70.361A Insect bite (nonvenomous), right thigh, initial encounter (principal); F17.210 Nicotine dependence, cigarettes, uncomplicated
CPT/HCPCS: J2930

== ENCOUNTER 2022-04-21 15:02 | Emergency (ER) | payer SELFPAY ==
--- OUTSIDE RECORDS SUMMARY | 2022-04-21 15:06 | XMS REPORT | Continuity of Care Document ---
:1970 Author Organization [facility] t Address [address] [place] [address] Care Team Providers Name Role Phone Asked, No Pcp Primary Care Physician Unavailable ROQUE AVILA Attending Clinician Unavailable TANYA KENYON [...] on on Recurrent Recurrent Disease Active 2016-[address] [facility] [address] pancreatit pancreatit 2-24 Aleta kes is is 00:00: [facility] Center Allergies, Adverse Reactions, Alerts This patient has no known allergies or adverse reactions. Social History Social Habit Start Date Stop Date Quantity Comments Source Alcohol intake 2017-07-12 2017-07-12 Current KALPANA Herring es 00:00:00 00:00:00 non-drinker of Medical Ce nter alcohol (finding) Cigarettes smoked 2017-02-25 2017-02-25 KALPANA Esparza current (pack per 00:00:00 [facility]:00 [facility] day) - Reported Cigarette 2017-02-25 2017-02-[address] [facility] pack-years 00:00:00 [facility]:00 [facility] Tobacco use and 2017-02-25 2017-02-[address] [facility] exposure 00:00:00 00:00:00 [facility] History of tobacco 2017-02-12 User of smokeless [facility] use 00:00:00 tobacco [facility] Sex Assigned At [birth year] KALPANA Silverman 00:00:00 [facility]:00:00 [facility] Smoking Status Start Date Stop Date Source Former smoker 2017-02-25 00:00:00 2017-02-25 00:00:[address] [facility] Smokes tobacco daily 2016-08-22 00:00:00 [facility] Medications Ordered Filled Start Stop Current Ordering Indication Dosage Frequency Signature Comments Components Source Medication Medication Date Date Medication? Clinician (SIG) Name Name No known No No known Metho di medications 6-[address] 03:08: [facility] l Procedures This patient has no known procedures. Plan of Care Planned Activity Planned Date Details Comments Source Future Scheduled 2022-03-14 SHINGLES VACCINES (1 Met [facility] Test 09:33:25 of 2) [code = SHINGLES VACCINES (1 of 2)] Future Scheduled 2022-03-14 INFLUENZA VACCINE Method [facility] Test 09:33:25 [code = INFLUENZA VACCINE] Future Scheduled 2022-03-14 COVID-19 VACCINE (#1) [facility] Test 09:33:25 [code = COVID-19 VACCINE (#1)] Future Scheduled 2022-03-14 Screening for [facility] Test 09:33:25 malignant neoplasm of cervix (procedure) [code = 583480823] Future Scheduled 2022-03-14 BREAST CANCER [facility] Test 09:33:25 SCREENING [code = BREAST CANCER SCREENING] Future Scheduled 2022-03-14 COLONOSCOPY SCREENING [facility] Test 09:33:25 [code = COLONOSCOPY SCREENING] Future Scheduled 2022-03-14 SHINGLES VACCINES (1 Met [facility] Test 09:33:25 of 2) [code = SHINGLES VACCINES (1 of 2)] Future Scheduled 2022-03-14 INFLUENZA VACCINE Method [facility] Test 09:33:25 [code = INFLUENZA VACCINE] Future Scheduled 2022-03-14 COVID-19 VACCINE (#1) [facility] Test 09:33:25 [code = COVID-19 VACCINE (#1)] Future Scheduled 2022-03-14 Screening for [facility] Test 09:33:25 malignant neoplasm of cervix (procedure) [code = 094620169] Future Scheduled 2022-03-14 BREAST CANCER [facility] Test 09:33:25 SCREENING [code = BREAST CANCER SCREENING] Future Scheduled 2022-03-14 COLONOSCOPY SCREENING [facility] Test 09:33:25 [code = COLONOSCOPY SCREENING] Results Test Description Test Time Test [...] TIMATED GFR. CBC W/PLT COUNT & AUTO [id number] 09:08:00 Test Item Value Reference Range Interpretation [...] PERCENT (BEAKER) (test code = 2801) [place], [id number] 21:43:00Reason for exam:->abd painFINAL REPORT Examination: ERCP 2 fluoroscopic spot views were obtained during the procedure by the ordering service. Images are nondiagnostic as no radiologist was present at the time of imaging. Fluoroscopic time was 81.9 seconds. Please see the procedure report for details. Signed: Hayden Fang MDReport Verified Date/Time: 07/11/2017 21:43:43 Reading Location: [address] Reading Room [facility] METABOLIC [id number] 04:51:00 Test Item Value Reference Range Interpretation [...] ESTIMATED GFR. CBC W/PLT COUNT & AUTO [id number] 04:46:00 Test Item Value Reference Range Interpretation [...] (BEAKER) (test code = 2801) BASIC METABOLIC [id number] 05:02:00 Test Item Value Reference Range Interpretation [...] ESTIMATED GFR. CBC W/PLT COUNT & AUTO [id number] 04:27:00 Test Item Value Reference Range Interpretation [...] PERCENT (BEAKER) (test code = 2801) CT, [id number] 19:19:00Reason for exam:->Abdominal painWhat is the patient's [...] seronegative spondyloarthropathy is recommended Signed: Sj Palacios Verified Date/Time: 07/09/2017 19:19:04 Reading Location: [address] Body Reading Room 07:19 PMPREGNANCY SCREEN, [id number] 19:18:00 Test Item Value Reference Range Interpretation Comments TEST URINE (BEAKER) (test Negative code = 583) BASIC METABOLIC [id number] 14:45:00 Test Item Value Reference Range Interpretation [...] TE ESTIMATED GFR. URINALYSIS W/ REFLEX URINE [id number] 14:33:00 Test Item Value Reference Range Interpretation [...] 0 /HPF SOURCE(BEAKER) (test code = 2795) [id number] 14:29:00 Test Item Value Reference Range Interpretation Comments LIPASE (BEAKER) (test code = 749) 43 U/L 8-78 HEPATIC FUNCTION [id number] 14:29:00 Test Item Value Reference Range Interpretation [...] (test code = 14 U/L 6-55 347) [id number] 14:23:00 Test Item Value Reference Range Interpretation Comments PARTIAL THROMBOPLASTIN TIME 27.7 seconds 22.5-36.0 (BEAKER) (test code = 760) CBC W/PLT COUNT & AUTO [id number] 14:22:00 Test Item Value Reference Range Interpretation [...] PERCENT (BEAKER) (test code = 2801) BLOOD [id number] 17:00:00 Test Item Value Reference Range Interpretation Comments CULTURE (BEAKER) (test No growth in 5 days code = 1095) COMPREHENSIVE METABOLIC [id number] 07:48:00 Test Item Value Reference Range Interpretation [...] DATA T O CALCULATE ESTIM ATED GFR. [id number] 07:44:00 Test Item Value Reference Range Interpretation Comments MAGNESIUM (BEAKER) (test code = 1.7 mg/dL 1.6-2.6 627) HEPATIC FUNCTION [id number] 07:44:00 Test Item Value Reference Range Interpretation [...] = 67 U/L 6-55 H 347) POCT-GLUCOSE [id number] 05:37:00 Test Item Value Reference Range Interpretation Comments POC-GLUCOSE METER 101 mg/dL 70-110 TESTED AT [facility] 67[address] ([place]EL[place]) (test code = [place] 3565) [address] CT, ABDOMEN - PELVIS, PANCREAS [id number] 03:30:00Reason for exam:- >recurrent pancreatitisFINAL REPORT CLINICAL [...] reactive. Attention on follow-up. Signed: Hayden Fang MDReport Verified Date/Time: 03/01/2017 03:30:46 Reading Location: [address] Reading Room POCT-GLUCOSE METER 2017-03-01 00:34:00 Test Item Value Reference Range Interpretation Comments POC-GLUCOSE METER 85 mg/dL 70-110 TESTED AT [place] [address] (BEAKER) (test code = [place] [facility] [address] 1538) POCT-GLUCOSE [id number] 17:59:00 Test Item Value Reference Range Interpretation Comments POC-GLUCOSE METER 85 mg/dL 70-110 TESTED AT [place] [address] (BEAKER) (test code = [facility] Dasha [facility] [address] 1538) POCT-GLUCOSE [id number] 11:39:00 Test Item Value Reference Range Interpretation Comments POC-GLUCOSE METER 84 mg/dL 70-110 TESTED AT [place] [address] (BEAKER) (test code = [facility] [place]asha [facility] [address] 1538) HEPATIC FUNCTION [id number] 07:46:00 Test Item Value Reference Range Interpretation [...] 76 U/L 6-55 H 347) BASIC METABOLIC [id number] 07:29:00 Test Item Value Reference Range Interpretation [...] ESTIMATED GFR. CBC W/PLT COUNT & AUTO [id number] 07:12:00 Test Item Value Reference Range Interpretation [...] 0-1 PERCENT (BEAKER) (test code = 2801) [id number] 06:42:00 Test Item Value Reference Range Interpretation [...] 2.5-3.5 for patients with mechanical heart valves.POCT-GLUCOSE [id number] 05:42:00 Test Item Value Reference Range Interpretation Comments POC-GLUCOSE METER 109 mg/dL 70-110 TESTED AT [place] [address] ([facility]) (test code = [facility] 1538) [address] POCT-GLUCOSE [id number] 23:11:00 Test Item Value Reference Range Interpretation Comments POC-GLUCOSE METER 124 mg/dL 70-110 H TESTED AT [place] [address] ([facility]) (test code = [facility] 1538) [address] POCT-GLUCOSE [id number] 17:35:00 Test Item Value Reference Range Interpretation Comments POC-GLUCOSE METER 147 mg/dL 70-110 H TESTED AT [place] [address] ([facility]) (test code = [facility] 1538) [address] HEPATIC FUNCTION [id number] 13:30:00 Test Item Value Reference Range Interpretation [...] = 101 U/L 6-55 H 347) POCT-GLUCOSE [id number] 11:51:00 Test Item Value Reference Range Interpretation Comments POC-GLUCOSE METER 124 mg/dL 70-110 H TESTED AT [place] [address] ([facility]) (test code = [place] [facility] 1538) [address] [place], 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 Signed: Lashell Vera MDReport Verified Date/Time: 02/27/2017 10:30:02 Reading Location: [facility] Radiology Reading Room POCT-GLUCOSE METER 2017-02-27 06:54:00 Test Item Value Reference Range Interpretation Comments POC-GLUCOSE METER 113 mg/dL 70-110 H TESTED AT [place] [address] (BEAKER) (test code = [place] 1538) [address] [id number] 06:46:00 Test Item Value Reference Range Interpretation Comments MAGNESIUM (BEAKER) (test code = 1.9 mg/dL 1.6-2.6 627) BASIC METABOLIC [id number] 06:46:00 Test Item Value Reference Range Interpretation [...] m DATA TO CALCULA TE ESTIMATED GFR. [id number] 06:36:00 Test Item Value Reference Range Interpretation [...] mechanical heart valves.CBC W/PLT COUNT & AUTO [id number] 06:29:00 Test Item Value Reference Range Interpretation [...] PERCENT (BEAKER) (test code = 2801) POCT-GLUCOSE [id number] 01:03:00 Test Item Value Reference Range Interpretation Comments POC-GLUCOSE METER 114 mg/dL 70-110 H TESTED AT [place] [address] ([facility]) (test code = [place] [facility] 1538) [address] POCT-GLUCOSE [id number] 21:52:00 Test Item Value Reference Range Interpretation Comments POC-GLUCOSE METER 83 mg/dL 70-110 TESTED AT [place] [address] ([facility]) (test code = [place] [facility] [address] 1538) POCT-GLUCOSE [id number] 18:04:00 Test Item Value Reference Range Interpretation Comments POC-GLUCOSE METER 123 mg/dL 70-110 H TESTED AT [place] [address] ([facility]) (test code = [place] [facility] 1538) [address] POCT-GLUCOSE [id number] 11:34:00 Test Item Value Reference Range Interpretation Comments POC-GLUCOSE METER 108 mg/dL 70-110 TESTED AT [place] [address] ([facility]) (test code = [place] [facility] 1538) [address] [id number] 09:45:00 Test Item Value Reference Range Interpretation Comments MAGNESIUM (BEAKER) (test code = 1.7 mg/dL 1.6-2.6 627) [id number] 08:55:00 Test Item Value Reference Range Interpretation Comments LIPASE (BEAKER) (test code = 749) 605 U/L 8-78 H Specimen slightly ictericU/S, ABDOMINAL, [id number] 06:47:00Reason for exam:->abdominal painFINAL REPORT U/S, ABDOMINAL, [...] MDReport Verified Date/Time: 02/26/2017 06:47:30 Reading Location: [facility] C013X [facility] Consult Reading Room 06:47 AM BASIC METABOLIC [id number] 06:18:00 Test Item Value Reference Range Interpretation [...] Specimen slightly ictericRAD, CHEST, 1 VIEW, NON [id number] 06:00:00Reason for exam:->PICC placement Should this be [...] MDReport Verified Date/Time: 02/26/2017 06:00:21 Reading Location: [facility] C013X Ortho Consult Reading Room PREGNANCY SCREEN, [id number] 05:24:00 Test Item Value Reference Range Interpretation Comments TEST URINE (BEAKER) (test Negative code = 583) URINALYSIS W/ [id number] 05:24:00 Test Item Value Reference Range Interpretation [...] 1584) SOURCE(BEAKER) (test code = Urine, Voided 6395) [id number] 05:17:00 Test Item Value Reference Range Interpretation [...] mechanical heart valves.CBC W/PLT COUNT & AUTO [id number] 05:14:00 Test Item Value Reference Range Interpretation [...] (BEAKER) (test code = 2801) BASIC METABOLIC [id number] 01:21:00 Test Item Value Reference Range Interpretation [...] TE ESTIMATED GFR. Specimen slightly ictericHEPATIC FUNCTION [id number] 01:11:00 Test Item Value Reference Range Interpretation [...] Specimen slightly ictericCBC W/PLT COUNT & AUTO [id number] 00:24:00 Test Item Value Reference Range Interpretation [...]
[2022-04-21 15:56] LABS: Absolute Lymphocytes (CBC) 1.8 K/uL (0.7-4.9); Hematocrit 43.2 % (36.0-45.0); Lymphocytes % 22.5 % (15.3-44.8); MCV 86.1 fL (80-100); MPV 9.1 fL (7.6-11.3); RBC Red Blood Cell Count 5.01 M/uL (3.86-4.86)
[2022-04-21 15:57] LABS: Protime INR 0.95
[2022-04-21 16:11] LABS: Albumin 3.8 g/dL (3.4-5.0); Bilirubin Direct 0.1 mg/dL (0-0.2); Bilirubin Total 0.4 mg/dL (0.2-1.0); Magnesium 2.3 mg/dL (1.6-2.4); Potassium 3.8 mmol/L (3.5-5.1); Protein, Total 7.6 g/dL (6.4-8.2); Troponin High Sensitivity 3.7 pg/mL (<58.9)
--- NOTE | 2022-04-21 16:26 | RAD REPORT ---
[facility] 3[facility]55 [facility] CLINICAL HISTORY: CHEST PAIN COMPARISON: Chest Single View dated 04/16/2021; Chest Single View dated 02/25/2017; Chest Single View dated 02/04/2017 TECHNIQUE: Portable AP view of the chest. FINDINGS: The lungs are clear. No pneumothorax or effusion. The cardiomediastinal contours are unrem arkable. IMPRESSION: No acute cardiopulmonary process.
[2022-04-21] MEDS ORDERED: ALBUTEROL 2.5 MG/3 ML NEB SOL ONE (16:57)
[2022-04-21] MEDS ORDERED: IPRATROPIUM BROM 0.5MG/2.5ML ONE (16:58)
--- NOTE | 2022-04-21 17:24 | RAD REPORT ---
EXAM DESCRIPTION: CT - Abdomen Pelvis W Contrast - 04/21/2022 5:11 pm CLINICAL HISTORY: Abdominal pain. Black stools 4-5 days. COMPARISON: 07/23/2020 and 02/22/2017 CT abdomen and pelvis TECHNIQUE: Biphasic, helical CT imaging of the abdomen and pelvis was performed following intravenou s administration of 90 mL Isovue-300. All CT scans are performed using dose optimization technique as appropriate and may include automated exposure control or mA/KV adjustment according to patient size. FINDINGS: No suspicious findings in the lung bases. The liver, spleen, and pancreas show no suspicious findings. The intrapancreatic and peripancreatic c ystic lesions seen on the prior CT of 2016 are no longer visualized. Few calcifications along the bod y of the pancreas suggestive of sequelae of chronic pancreatitis. Gallbladder and biliary tree are al so without suspicious finding. Symmetric renal function is seen with no hydronephrosis or suspicious renal mass. No dilated bowel loops or bowel wall thickening. Mild burden of/diverticula, without evidence of acut e diverticulitis. No free air, free fluid or inflammatory stranding. No hernia, mass or bulky lymphad enopathy. The urinary bladder is suboptimally distended which limits evaluation. No suspicious bony findings. IMPRESSION: No acute intra-abdominal process. Mild sequelae of chronic pancreatitis as above.
[2022-04-21 17:39] LABS: SARS-COV-2 RT PCR NEGATIVE (NEGATIVE)
--- NOTE | 2022-04-21 20:09 | ER ---
Nurse's Notes [facility] Name: Shell Howard Age: 51 yrs Sex: Female : 1970 Arrival Date: 04/21/2022 Time: 15:05 Bed 15 Private MD: Diagnosis: Cough;Chest pain, unspecified Presentation: 04/21 15:11 Chief complaint: Patient states: chest pain X 2 months but worse over past week, right iw ear pain, and black stool with mucous X 4-5 days. Coronavirus screen: At this time, the client does not indicate any symptoms associated with coronavirus-19. Ebola Screen: Patient negative for fever greater than or equal to 101.5 degrees Fahrenheit, and additional compatible Ebola Virus Disease symptoms Patient denies exposure to infectious person. Patient denies travel to an Ebola-affected area in the 21 days before illness onset. No symptoms or risks identified at this time. Initial Sepsis Screen: Does the patient meet any 2 criteria? No. Patient's initial sepsis screen is negative. Does the patient have a suspected source of infection? No. Patient's initial sepsis screen is negative. Risk Assessment: Do you want to hurt yourself or someone else? Patient reports no desire to harm self or others. Onset of symptoms was March 2022. 15:11 Method Of Arrival: Ambulatory iw 15:11 Acuity: COSME 3 iw Historical: - Allergies: 15:14 No Known Allergies; iw - Home Meds: 15:14 None [Active]; iw - PMHx: 15:14 Pancreatitis; iw - Immunization history:: Client reports having NOT received the Covid vaccine. - Social history:: Smoking status: Patient reports the use of cigarette tobacco products, smokes one pack cigarettes per day. Patient uses. Screenin:25 [facility] ED Fall Risk Assessment (Adult) History of falling in the last 3 months, ph including since admission No falls in past 3 months (0 pts) Confusion or Disorientation No (0 pts) Intoxicated or Sedated No (0 pts) Impaired Gait No (0 pts) Mobility Assist Device Used No (0 pt) Altered Elimination No (0 pt) Score/Fall Risk Level 0 - 2 = Low Risk Oriented to surroundings, Maintained a safe environment, Hourly rounding (assess needs \T\ fall precautionary measures) done. Abuse screen: Denies threats or abuse. Denies injuries from another. Nutritional screening: No deficits noted. Tuberculosis screening: No symptoms or risk factors identified. Assessment: 15:43 General: Appears in no apparent distress. comfortable, Behavior is cooperative, ph appropriate for age, anxious, Denies fever, feeling ill. Pain: Complains of pain in anterior aspect of left upper chest Pain does not radiate. Pain began approx 1 month ago. 15:46 Neuro: Level of Consciousness is awake, alert, obeys commands, Oriented to person, ph place, time, situation. Cardiovascular: Reports chest pain, lightheadedness, Denies shortness of breath, vomiting, Capillary refill < 3 seconds in bilateral fingers Patient's skin is warm and dry. Rhythm is regular. Respiratory: Airway is patent Respiratory effort is even, unlabored, Respiratory pattern is regular, symmetrical. GI: Reports diarrhea, dark in color w/ mucus. Derm: Skin is healthy with good turgor, Skin is pink, warm \T\ dry. Musculoskeletal: Circulation, motion, and sensation intact. Range of motion: intact in all extremities. 17:01 Reassessment: Patient appears in no apparent distress at this time. Patient and/or ph family updated on plan of care and expected duration. Pain level reassessed. Patient is alert, oriented x 3, equal unlabored respirations, skin warm/dry/pink. Pt taken to CT via wheelchair. 18:00 Reassessment: Patient appears in no apparent distress at this time. Patient and/or ph family updated on plan of care and expected duration. Pain level reassessed. Patient is alert, oriented x 3, equal unlabored respirations, skin warm/dry/pink. Vital Signs: 15:11 BP 120 / 71; Pulse 89; Resp 16; Temp 97.9; Pulse Ox 96% ; Weight 74.84 kg; Height 5 ft. iw 5 in. (165.10 cm); 18:00 BP 108 / 57; Pulse 66; Resp 18; Pulse Ox 100% on R/A; ph 15:11 Body Mass Index 27.46 (74.84 kg, 165.10 cm) iw ED Course: 15:05 Patient arrived in ED. mr 15:07 Gonzalo Leo PA is PHCP. cp 15:07 Familia Loera MD is Attending Physician. cp 15:14 Triage completed. iw 15:14 Arm band placed on. iw 15:19 Liriano, Lea, RN is Primary Nurse. ph 15:24 EKG done, by ED staff, reviewed by Familia Loera MD. Missed attempt(s): 20 gauge in mm9 right antecubital area. 15:26 Patient has correct armband on for positive identification. Placed in gown. Bed in low ph position. Call light in reach. Side rails up X 1. Client placed on continuous cardiac and pulse oximetry monitoring. NIBP monitoring applied. 15:27 Patient maintains SpO2 saturation greater than 95% on room air. ph 15:48 Initial lab(s) drawn, by me, sent to lab. Inserted saline lock: 22 gauge in right ph antecubital area, using aseptic technique. Blood collected. 15:57 XRAY Chest (1 view) In Process Unspecified. EDMS 16:38 Strep Sent. kr3 16:38 COVID-19/FLU A+B Sent. kr3 17:12 CT Abd/Pelvis - IV Contrast Only In Process Unspecified. EDMS 19:03 Troponin High Sensitivity Sent. mm9 21:14 No provider procedures requiring assistance completed. ke1 21:15 IV discontinued. ke1 Administered Medications: 17:21 Drug: AtroVENT (ipratropium) Aerosol 0.5 mg Route: Inhalation; ph 19:49 Follow up: Response: No adverse reaction ph 17:22 Drug: Albuterol 2.5 mg Route: Inhalation; ph 19:49 Follow up: Response: No adverse reaction ph Medication: 15:27 VIS not applicable for this client. ph Outcome: 20:09 Discharge ordered by . cp 21:14 Discharged to home ambulatory. ke1 21:14 Condition: good 21:14 Discharge instructions given to patient. 21:15 Patient left the ED. ke1 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 [employer] ED Cash Christy Yelena Desir RN RN iw Lea Liriano, RN RN Gonzalo Drummond PA PA cp Ebrottie, Kouassi, RN RN ke1 Antoinette Dimas RN RN Spring Maurer mm9
--- NOTE | 2022-04-21 20:09 | EDPHYS ---
Physician Documentation [facility] Name: Shell Howard Age: 51 yrs Sex: Female : 1970 Arrival Date: 04/21/2022 Time: 15:05 Bed 15 Private MD: ED Physician Familia Loera HPI: 04/21 15:20 This 51 yrs old Female presents to ER via Ambulatory with complaints of cp Black/Tarry Stools, Chest Pain, Cough, Ear Pain. 15:20 The patient or guardian reports chest pain that is located primarily in the anterior cp chest wall, bilaterally. Onset: 2 month(s) ago, and became worse 1 week(s) ago. 15:20 The pain does not radiate. Associated signs and symptoms: Pertinent positives: cough cp times 1 month, right ear pain, dark colored loose stools over past 4 days. The chest pain is described as a heaviness. Duration: The patient or guardian reports multiple episodes, that wax and wane, with no pattern. Severity of pain: in the emergency department the pain is unchanged despite home interventions. Patient admits to be under increased stress and reports HX of pancreatic cysts with pancreatic stent placed in the past. Patient admits to smoking about 1 pack cigarettes per day. Denies weight loss. Historical: - Allergies: 15:14 No Known Allergies; iw - Home Meds: 15:14 None [Active]; iw - PMHx: 15:14 Pancreatitis; iw - Immunization history:: Client reports having NOT received the Covid vaccine. - Social history:: Smoking status: Patient reports the use of cigarette tobacco products, smokes one pack cigarettes per day. Patient uses. ROS: 15:25 Constitutional: Negative for body aches, chills, fever, poor PO intake. cp 15:25 Cardiovascular: Positive for chest pain, Negative for edema, palpitations. cp 15:25 Respiratory: Positive for cough, with no reported sputum. 15:25 Abdomen/GI: Positive for black/tarry stool, Negative for abdominal pain, vomiting, cp diarrhea, constipation, anorexia, dysphagia. 15:25 Eyes: Negative for injury, pain, redness, and discharge. cp 15:25 ENT: Positive for ear pain. 15:25 Back: Negative for pain at rest, pain with movement. 15:25 : Negative for urinary symptoms. 15:25 Neuro: Negative for altered mental status, dizziness, headache, syncope, weakness. 15:25 All other systems are negative. Exam: 15:25 ECG was reviewed by the Attending Physician. cp 15:30 Constitutional: The patient appears in no acute distress, alert, awake, cp non-diaphoretic, non-toxic, well developed, well nourished, anxious. 15:30 Head/Face: Normocephalic, atraumatic. cp 15:30 Eyes: Periorbital structures: appear normal, Pupils: equal, round, and reactive to light and accomodation, Extraocular movements: intact throughout, Conjunctiva: normal, no exudate, no injection, Sclera: no appreciated abnormality, Lids and lashes: appear normal, bilaterally. 15:30 ENT: External ear(s): are unremarkable, Ear canal(s): are normal, clear, TM's: dullness, bilaterally, Nose: is normal, Mouth: Lips: moist, Oral mucosa: pink and intact, moist, Posterior pharynx: is normal, airway is patent, no erythema, no exudate. 15:30 Neck: ROM/movement: is normal, is supple, without pain, no range of motions limitations. 15:30 Chest/axilla: Inspection: normal. 15:30 Cardiovascular: Rate: normal, Rhythm: regular, Edema: is not appreciated, JVD: is not appreciated. 15:30 Respiratory: the patient does not display signs of respiratory distress, Respirations: normal, no use of accessory muscles, no retractions, labored breathing, is not present, Breath sounds: are clear throughout, no decreased breath sounds, no stridor, no wheezing. 15:30 Abdomen/GI: Inspection: abdomen appears normal, Bowel sounds: active, all quadrants, Palpation: abdomen is soft and non-tender, in all quadrants. 15:30 Back: pain, is absent, ROM is normal. 15:30 Skin: cellulitis, is not appreciated, no rash present. 15:30 Neuro: Orientation: to person, place \T\ time. Mentation: is normal, Motor: moves all fours, strength is normal, Sensation: is normal. Vital Signs: 15:11 BP 120 / 71; Pulse 89; Resp 16; Temp 97.9; Pulse Ox 96% ; Weight 74.84 kg; Height 5 ft. iw 5 in. (165.10 cm); 18:00 BP 108 / 57; Pulse 66; Resp 18; Pulse Ox 100% on R/A; ph 15:11 Body Mass Index 27.46 (74.84 kg, 165.10 cm) iw MDM: 15:24 Patient medically screened. cp 16:00 Differential diagnosis: abnormal EKG, acute myocardial infarction, acute pericarditis, cp anxiety, cholecystitis, Cholelithiasis gastritis, pancreatitis, peptic ulcer disease, pleurisy, pneumonia, pneumothorax, pulmonary embolus, stable angina, unstable angina. 20:08 Data reviewed: vital signs, nurses notes, lab test result(s), EKG, radiologic studies, cp CT scan, plain films. 20:08 Consideration of Admission/Observation Escalation of care including cp admission/observation considered. Independent interpretation of the following test(s) in the Emergency Department EKG: See my EKG interpretation above X-Ray: My interpretation is chest xray negative for infiltrates. Test considered but Not performed: CT: chest. Other Details admission for cardiology consult and echo. Counseling: I had a detailed discussion with the patient and/or guardian regarding: the historical points, exam findings, and any diagnostic results supporting the discharge/admit diagnosis, lab results, radiology results, the need for outpatient follow up, a family practitioner, to return to the emergency department if symptoms worsen or persist or if there are any questions or concerns that arise at home. Special discussion: Based on the patient's history, exam, and Dx evaluation, there is no indication for emergent intervention or inpatient Tx. It is understood by the patient/guardian that if the Sx's persist or worsen they need to return immediately for re-evaluation. ED course: VSS. Initial and repeat troponin negative. Low suspicion for acute coronary syndrome. Discussed concern about change in bowel habits and color of stool. Recommend f/u with pcp, GI consult/referral. Return to ED worsening symptoms. 04/21 15:16 Order name: Basic Metabolic Panel; Complete Time: 16:14 cp 04/21 16:14 Interpretation: Normal except: CL 109. cp 04/21 15:16 Order name: CBC with Diff; Complete Time: 16:14 cp 04/21 16:14 Interpretation: Normal except: RBC 5.01. cp 04/21 15:16 Order name: LFT's; Complete Time: 16:14 cp 04/21 16:19 Interpretation: Normal except: GLOB 3.8; A/G 1.0. cp 04/21 15:16 Order name: Magnesium; Complete Time: 16:14 cp 04/21 15:16 Order name: NT PRO-BNP; Complete Time: 16:14 cp 04/21 15:16 Order name: PT-INR; Complete Time: 16:14 cp 04/21 15:16 Order name: Troponin HS; Complete Time: 16:14 cp 04/21 15:16 Order name: XRAY Chest (1 view); Complete Time: 17:39 cp 04/21 17:39 Interpretation: Report review. cp 04/21 16:22 Order name: COVID-19/FLU A+B; Complete Time: 17:40 cp 04/21 17:40 Interpretation: Reviewed. cp 04/21 16:22 Order name: Strep; Complete Time: 17:39 cp 04/21 16:24 Order name: CT Abd/Pelvis - IV Contrast Only; Complete Time: 17:39 cp 04/21 17:40 Interpretation: Report reviewed. cp 04/21 17:04 Order name: Throat Culture EDMS 04/21 18:14 Order name: Troponin High Sensitivity; Complete Time: 20:03 cp 04/21 15:16 Order name: EKG; Complete Time: 15:18 cp 04/21 15:16 Order name: Cardiac monitoring; Complete Time: 15:38 cp 04/21 15:16 Order name: EKG - Nurse/Tech; Complete Time: 15:24 cp 04/21 15:16 Order name: IV Saline Lock; Complete Time: 15:43 cp 04/21 15:16 Order name: Labs collected and sent; Complete Time: 15:43 cp 04/21 15:16 Order name: O2 Per Protocol; Complete Time: 15:38 cp 04/21 15:16 Order name: O2 Sat Monitoring; Complete Time: 15:38 cp 04/21 15:16 Order name: Urine Dipstick-Ancillary (obtain specimen); Complete Time: 19:49 cp 04/21 15:16 Order name: Urine Test (obtain specimen); Complete Time: 19:49 cp EC:25 Rate is 72 beats/min. Rhythm is regular. IA interval is normal. QRS interval is normal. cp QT interval is normal. T waves are Inverted in lead aVR. Interpreted by me. Reviewed by me. Administered Medications: 17:21 Drug: AtroVENT (ipratropium) Aerosol 0.5 mg Route: Inhalation; ph 19:49 Follow up: Response: No adverse reaction ph 17:22 Drug: Albuterol 2.5 mg Route: Inhalation; ph 19:49 Follow up: Response: No adverse reaction ph Disposition: 04/22 14:34 Co-signature as Attending Physician, Familia Loera MD I reviewed the patient's care rt provided by the Advanced Practice Provider and agree with the diagnosis and treatment plan. Disposition Summary: 04/21/22 20:09 Discharge Ordered Location: Home cp Problem: new cp Symptoms: have improved cp Condition: Stable cp Diagnosis - Cough cp - Chest pain, unspecified cp Followup: cp - With: Private Physician - When: 2 - 3 days - Reason: Recheck today's complaints Discharge Instructions: - Discharge Summary Sheet cp - Nonspecific Chest Pain, Adult cp - Steps to Quit Smoking cp - Health Risks of Smoking cp - Cough, Adult cp - Aspirin and Your Heart cp Forms: - Medication Reconciliation Form cp - Thank You Letter cp - Antibiotic Education cp - Prescription Opioid Use cp - Work release form ke1 Prescriptions: - albuterol sulfate 90 mcg/actuation Inhalation HFA aerosol inhaler - inhale 1 puff by INHALATION route every 4-6 hours; 1 Inhaler; Refills: 0, cp Product Selection Permitted - Bromfed DM 2-30-10 mg/5 mL Oral syrup - take 10 milliliter by ORAL route every 6 hours; 180 milliliter; Refills: 0, cp Product Selection Permitted 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 [employer] Yelena Sauceda RN RN iw Hall, Patricia, RN RN ph Gonzalo Leo, ESTEFANIA PA cp Familia Loera MD MD rt
[2022-04-21 21:26] VITALS: TEMP 97.9
[2022-04-21 21:31] VITALS: BP 108/57; O2SAT 100
--- NOTE | 2022-04-24 12:45 | EKG ---
Test Date: 2022-04-21 Test Time: 15:22:02 Cryptanalyst: JOSE MEASUREMENT RESULTS: Intervals: Rate: 72 FL: 136 QRSD: 80 QT: 404 QTc: 442 [place]cott: P: 53 FL: 136 QRS: 54 T: 55 INTERPRETIVE STATEMENTS: Normal sinus rhythm Possible Left atrial enlargement Borderline ECG Compared to ECG 02/04/2017 21:01:54 No significant changes Electronically Signed On 04-24-22 12:38:24 SPOOLER OPERATOR by Deric Tillman
== END 2022-04-21 21:15 | disposition home or self-care (01) ==
LOC: ER 15:02
DX: R07.89 Other chest pain (principal); R05.9 Cough, unspecified; F17.210 Nicotine dependence, cigarettes, uncomplicated
CPT/HCPCS: 0240U; 36415; 71045; 74177; 80048; 80076; 83735; 83880; 84484; 85025; 85610; 87070; 87081; 93005; 99285; J7613; J7644; Q9967

== ENCOUNTER 2023-11-07 16:11 | Emergency (ER) | payer OTHER, SELFPAY ==
[2023-11-07 17:47] LABS: SARS-CoV-2 Antigen CONTROL BLUE LINE VIS/BG OK
[2023-11-07 17:48] LABS: SARS-CoV-2 Antigen Rapid Res Positive (Negative)
--- NOTE | 2023-11-07 18:24 | ER ---
Nurse's Notes [facility] Name: Shell Howard Age: 53 yrs Sex: Female : 1970 Arrival Date: 11/07/2023 Time: 16:11 Bed Treatment Private MD: Diagnosis: Coronavirus infection, unspecified;Right Ear Pain Presentation: 11/06 16:32 Chief complaint: Patient states: right ear pain x2 days with fever n/v. Coronavirus kc6 screen: At this time, the client does not indicate any symptoms associated with coronavirus-19. Ebola Screen: No symptoms or risks identified at this time. Initial Sepsis Screen: Does the patient meet any 2 criteria? No. Patient's initial sepsis screen is negative. Does the patient have a suspected source of infection? No. Patient's initial sepsis screen is negative. Risk Assessment: Do you want to hurt yourself or someone else? Patient reports no desire to harm self or others. Onset of symptoms was November 07, 2023. 16:32 Method Of Arrival: Ambulatory [facility] 16:32 Acuity: COSME 4 kc6 GASOLINE TESTER: 18:35 LMP N/A - Post-menopause, Not me1 Historical: - Allergies: 16:34 POISON JENNIFER; kc6 - PMHx: 16:34 Pancreatitis; kc6 - PSHx: 16:34 section; pancreatic stent; kc6 - Immunization history:: Adult Immunizations up to date. - Infectious Disease History:: Denies. - Social history:: Smoking status: Patient reports the use of cigarette tobacco products, Reported history of juuling and/or vaping. Screenin:38 [facility] ED Fall Risk Assessment (Adult) History of falling in the last 3 months, me1 including since admission No falls in past 3 months (0 pts) Confusion or Disorientation No (0 pts) Intoxicated or Sedated No (0 pts) Impaired Gait No (0 pts) Mobility Assist Device Used No (0 pt) Altered Elimination No (0 pt) Score/Fall Risk Level 0 - 2 = Low Risk Maintained a safe environment, Provided non-skid footwear, Hourly rounding (assess needs \T\ fall precautionary measures) done. Abuse screen: Denies threats or abuse. Nutritional screening: No deficits noted. Tuberculosis screening: No symptoms or risk factors identified. Assessment: 16:38 General: Appears uncomfortable, ill, well groomed, well developed, well nourished, me1 Behavior is calm, cooperative, appropriate for age, Reports right ear pain x2 days with fever and n/v. Pain: Complains of pain in right ear Pain does not radiate. Pain currently is 7 out of 10 on a pain scale. Quality of pain is described as sharp, Pain began gradually, 2-3 days ago. Is continuous. Neuro: Level of Consciousness is awake, alert, obeys commands, Oriented to person, place, time, situation, Appropriate for age. Cardiovascular: Patient's skin is warm and dry. Respiratory: Airway is patent Respiratory effort is even, unlabored, Respiratory pattern is regular, symmetrical. GI: Reports nausea, vomiting. : No signs and/or symptoms were reported regarding the genitourinary system. EENT: Reports pain in right ear. Derm: Skin is intact, is healthy with good turgor, Skin is pink, warm \T\ dry. Musculoskeletal: No signs and/or symptoms reported regarding the musculoskeletal system. Vital Signs: 16:32 BP 112 / 86; Pulse 81; Resp 17 S; Temp 98.5(O); Pulse Ox 97% on R/A; Weight 79.83 kg kc6 (R); Height 5 ft. 5 in. (R); Pain 5/10; 18:26 BP 118 / 76; Pulse 77; Resp 16; Temp 98.6; Pulse Ox 97% ; me1 16:32 Body Mass Index 29.29 (79.83 kg, 165.1 cm) kc6 16:32 Pain Scale: Adult kc ED Course: 16:30 Patient arrived in ED. mg5 16:31 [place] Fam MD is Attending Physician. sd2 16:34 Triage completed. kc6 16:34 Arm band placed on. kc6 16:38 Rina Jackman, RENZO is Primary Nurse. me1 16:38 Patient has correct armband on for positive identification. Bed in low position. Call me1 light in reach. Side rails up X2. Provided Education on: POC. Verbalized understanding. . 16:38 No provider procedures requiring assistance completed. me1 17:28 Flu Sent. me1 17:28 SARS RAPID Sent. me1 17:28 COVID swab sent to lab. Flu and/or RSV swab sent to lab. me1 18:35 Patient did not have IV access during this emergency room visit. me1 Administered Medications: No medications were administered Medication: 16:38 VIS not applicable for this client. me1 Outcome: 18:23 Discharge ordered by . sd2 18:35 Discharged to home ambulatory, me1 18:35 Condition: stable 18:35 Discharge instructions given to patient, Instructed on discharge instructions, follow up and referral plans. Demonstrated understanding of instructions, follow-up care, 18:35 Patient left the ED. me1 Signatures: [place] Fam MD MD sd2 Ashely Howell RN RN kc6 Rina Jackman RN RN me1 Danita Schwartz mg5 Corrections: (The following items were deleted from the chart) 16:38 16:32 Chief complaint: Patient states: right ear pain x2 days with fever n/v kc6 me1
--- NOTE | 2023-11-07 18:24 | EDPHYS ---
Physician Documentation [facility] Name: Shell Howard Age: 53 yrs Sex: Female : 1970 Arrival Date: 11/07/2023 Time: 16:11 Bed Treatment Private MD: ED Physician [place] Fam HPI: 11/06 16:58 This 53 yrs old Female presents to ER via Ambulatory with complaints of Flu sd2 Symptoms, Ear Pain. 16:58 53 yo F presents with CC of cough and R ear pain for the past week. Reports coworker sd2 recently had COVID but is concerned for ear infection. Had fever to 102 yesterday improved with Nyquil and Tylenol. Also reports vomiting x1 2 days ago. . 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 - Infectious Disease History:: Denies. - Social history:: Smoking status: Patient reports the use of cigarette tobacco products, Reported history of juuling and/or vaping. ROS: 16:58 Eyes: Negative for injury, pain, redness, and discharge, sd2 16:58 Eyes: Negative for injury, pain, redness, and discharge, 16:58 Cardiovascular: Negative for chest pain, palpitations, and edema, 16:58 MS/Extremity: Negative for injury and deformity, Skin: Negative for injury, rash, and discoloration, Neuro: Negative for headache, numbness and tingling. 16:58 Constitutional: Positive for fever, Negative for weight loss, 16:58 ENT: Positive for ear pain, Negative for injury or acute deformity, drainage from ear(s), 16:58 Respiratory: Positive for cough, Negative for shortness of breath, wheezing, 16:58 Abdomen/GI: Positive for nausea, vomiting, Negative for diarrhea, Exam: 16:58 Constitutional: This is a well developed, well nourished patient who is awake, alert, sd2 and in no acute distress. Head/Face: Normocephalic, atraumatic. Eyes: EOMI, normal conjunctiva bilaterally ENT: Nares patent. No nasal discharge, no septal abnormalities noted. Tympanic membranes are normal and external auditory canals are clear. Mucous membranes moist. Chest/axilla: Normal chest wall appearance and motion. Nontender with no deformity. Cardiovascular: Regular rate and rhythm with a normal S1 and S2. No gallops, murmurs, or rubs. 2+ distal pulses. Respiratory: Lungs have equal breath sounds bilaterally, clear to auscultation and percussion. No rales, rhonchi or wheezes noted. No increased work of breathing, no retractions or nasal flaring. Abdomen/GI: Soft, non-tender, with normal bowel sounds. No guarding or rebound. No evidence of tenderness throughout. Skin: Warm, dry with normal turgor. Normal color with no rashes, no lesions, and no evidence of cellulitis. MS/ Extremity: Pulses equal, no cyanosis. Neurovascular intact. Full, normal range of motion. Psych: Awake, alert, with orientation to person, place and time. Behavior, mood, and affect are within normal limits. Vital Signs: 16:32 BP 112 / 86; Pulse 81; Resp 17 S; Temp 98.5(O); Pulse Ox 97% on R/A; Weight 79.83 kg kc6 (R); Height 5 ft. 5 in. (R); Pain 5/10; 18:26 BP 118 / 76; Pulse 77; Resp 16; Temp 98.6; Pulse Ox 97% ; me1 16:32 Body Mass Index 29.29 (79.83 kg, 165.1 cm) kc6 16:32 Pain Scale: Adult kc6 MDM: 16:38 Patient medically screened. sd2 16:58 Differential diagnosis: otitis media, otitis externa, ruptured TM, foreign body, COVID, sd2 flu among others. Data reviewed: vital signs, nurses notes, lab test result(s). 18:21 Counseling: I had a detailed discussion with the patient and/or guardian regarding the sd2 historical points, exam findings, and any diagnostic results supporting the discharge/admit diagnosis, lab results, the need for outpatient follow up, to return to the emergency department if symptoms worsen or persist or if there are any questions or concerns that arise at home. ED course: Labs reviewed. COVID positive. Discussed continued supportive care and need for outpatient follow up. Verbalizes understanding of dc plan and strict return precautions. . 11/06 16:50 Order name: SARS RAPID; Complete Time: 18:21 sd2 11/06 16:50 Order name: Flu; Complete Time: 18:21 sd2 Administered Medications: No medications were administered Disposition Summary: 11/07/23 18:23 Discharge Ordered Problem: new sd2 Symptoms: are unchanged sd2 Condition: Stable sd2 Diagnosis - Coronavirus infection, unspecified sd2 - Right Ear Pain sd2 Followup: sd2 - With: Private Physician - When: 2 - 3 days - Reason: Recheck today's complaints, Continuance of care, Re-evaluation by your physician Discharge Instructions: - Discharge Summary Sheet sd2 - COVID-19 sd2 - 10 Things You Can Do to Manage Your COVID-19 Symptoms at Home - [facility] (09/17/2020) sd2 Forms: - Medication Reconciliation Form sd2 - Antibiotic Education sd2 - Prescription Opioid Use sd2 - Patient Portal Instructions sd2 - Leadership Thank You Letter sd2 - Work release form me1 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 [employer] [place] Cervantes MD MD sd2 Ashely Howell RN RN kc6
[2023-11-07 18:55] VITALS: O2SAT 97
[2023-11-07 18:56] VITALS: BP 118/76; TEMP 98.6
== END 2023-11-07 18:35 | disposition home or self-care (01) ==
LOC: ER 16:11
DX: U07.1 COVID-19 (principal); H92.01 Otalgia, right ear; Z72.0 Tobacco use
CPT/HCPCS: 36415; 87804; 87811; 99283